=== PATIENT | female | born 1955 | race African-American/Black ===

== ENCOUNTER → 2016-06-09 | Outpatient (CLI) | payer MEDICARE ==
--- NOTE | 2016-06-09 11:20 | XR ---
EXAMINATION TYPE: XR cervical spine comp DATE OF EXAM: 06/09/2016 11:09 AM COMPARISON: NONE HISTORY: Pain TECHNIQUE: Four views are submitted. FINDINGS: The odontoid is intact. There are no compression deformities. The prevertebral soft tissue structur es are within normal limits. There is severe degenerative disc disease in C4-5, C5-6 and C6-C7. Hype rtrophic spurs are noted. Foraminal encroachment C5-6 and C6-C7. IMPRESSION: 1. Multilevel severe degenerative disc disease with foraminal encroachment.
== END | disposition home or self-care (01) ==
LOC: RADXRMAIN 10:43
PROVIDERS: ATTEND Internal Medicine
DX: M50.321 Other cervical disc degeneration at C4-C5 level (principal)
CPT/HCPCS: 72050

== ENCOUNTER → 2016-07-15 | Outpatient (CLI) | payer MEDICARE, OTHER ==
[2016-07-15 16:20] LABS: Appearance,Urine Clear (Clear); Bilirubin,Urine Negative (Negative); Glucose,Urine (UA) Negative (Negative); Ketones,Urine Negative (Negative); Leukocyte Esterase,Urine Negative (Negative); Nitrite,Urine Negative (Negative); PH, Urine 5.5 (5.0-8.0); Protein,Urine Trace (Negative); Specific Gravity,Urine 1.017 (1.001-1.035); UA Billing (MACRO vs. MICRO) CHEM; Urobilinogen,Urine <2.0 mg/dL (<2.0)
--- NOTE | 2016-07-15 17:28 | WWHP ---
DATE OF SERVICE: 07/15/2016. CHIEF COMPLAINT: The patient is here for her routine gynecologic exam and mammogram. HPI: This is a 60-year-old G0 with an LMP of 2001. She is status post CARLOS for uterine fibroids. She is without gynecologic complaints. PAST MEDICAL HISTORY: Multiple sclerosis, chronic hypertension, asthma, gastroesophageal reflux disease, migraine headaches, and depression and intermittent tachycardia and Dr. Justice is her primary care physician. MEDICATIONS: 1. ProAir 2 puffs daily. 2. Alvesco 80 mcg 2 puffs daily. 3. Topironmate 25 mg q.h.s. 4. Duloxetine HCL 30 mg daily. 5. Meloxicam 7.5 mg daily. 6. Hydrochlorothiazide 25 mg daily. 7. Atorvastatin 20 mg q.h.s. 8. Vitamin D3 2000 units daily. 9. Amlodipine besylate 10 mg daily. 10. Lansoprazole 30 mg daily. 11. Zafirlukast 20 mg b.i.d. 12. Copaxone 20 mg/mL as directed. 13. Fluticasone 50 mcg 1 to 2 sprays in each nostril daily. 14. Miralite as directed. 15. Folic acid daily. 16. Melatonin 5 mg at bedtime. 17. Darvon as directed. ALLERGIES: PENICILLIN, ASPIRIN, SULFA, AND CERTAIN DYES. PAST SURGICAL HISTORY: CARLOS and possible unilateral oophorectomy in 2001, laparoscopy in the , multiple colonoscopies and the most recent was in 2016. Varicose vein laser surgery 2016 and 2017. 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 SOCIAL HISTORY: She denies tobacco, alcohol, and drug use. She is disabled. She has been with her boyfriend since 1997 and lives next door to him. REVIEW OF SYSTEMS: She has lost about 11 pounds over the last year. She denies respiratory, cardiac, or GI problems. : She has occasional difficulty voiding where she had an urge to urinate, but only small amount will come out. She denies any dysuria. PHYSICAL EXAM: Blood pressure 116/79. Height 5 feet 6 inches. Weight 201 pounds. Temperature 98.1, pulse 58. This a well-developed, heavyset black female who is alert and oriented x3 in no acute distress. HEENT is within normal limits. NECK: Supple without mass or thyromegaly. CHEST AND LUNGS: Clear to auscultation. HEART: Regular rate and rhythm. Breasts are without mass or discharge. There is dimpled area on the right breast at approximately the 8:00 position consistent with previous open breast biopsy. This is well-healed. Axillary exam negative for adenopathy. BACK: Negative for CVA tenderness. ABDOMEN: Soft, nontender, without palpable masses. PELVIC EXAM: Normal external genitalia. Vagina appears normal with minimal atrophy. There is no evidence of prolapse. Bimanual exam reveals some mild generalized pelvic tenderness, without palpable masses. Rectovaginal exam is negative for mass or tenderness and is negative for occult blood. EXTREMITIES: Nontender. IMPRESSION: 1. A 60-year-old menopausal female, status post total abdominal hysterectomy for benign reasons. 2. Mild generalized pelvic tenderness, without palpable mass. 3. Urinary symptoms consisting of some occasional urinary urgency with small voids. PLAN: 1. Pap smears have been discontinued. 2. Self-breast examination was discussed. 3. Mammogram will be done today. 4. Clean-catch midstream UA and C&S has been obtained. 5. Pelvic ultrasound will be scheduled because of the pelvic tenderness. 6. She will return in one year. SAMUEL
--- NOTE | 2016-07-16 10:04 | MM ---
Reason for exam: screening (asymptomatic). Last mammogram was performed 1 year and 1 month ago. History: Patient is postmenopausal and is nulliparous. Family history of premenopausal breast cancer in sister at age 23, breast cancer in 3 maternal aunts, breast cancer in sister at age 47, and breast cancer in 5 maternal cousins. Excisional biopsy of the right breast, April 20, 2008. Benign right mammotome panel of the right breast, March 26, 2008. Physical Findings: A clinical breast exam by your physician is recommended on an annual basis and results should be correlated with mammographic findings. MG 3D Screening Mammo W/Cad Bilateral CC and MLO view(s) were taken. Prior study comparison: June 18, 2015, bilateral MG 3d screening mammo w/cad. June 13, 2014, bilateral MG diagnostic mammo w CAD MAXIMINO. The breast tissue is heterogeneously dense. This may lower the sensitivity of mammography. Stable benign calcifications. Stable post biopsy changes in the right breast. No significant changes when compared with prior studies. ASSESSMENT: Benign, BI-RAD 2 RECOMMENDATION: Routine screening mammogram of both breasts in 1 year.
== END | disposition home or self-care (01) ==
LOC: WWCWWP 09:21
PROVIDERS: ATTEND Obstetrics & Gynecology
DX: Z12.31 Encounter for screening mammogram for malignant neoplasm of breast (principal)
CPT/HCPCS: 81003; 87086; 77063; G0202

== ENCOUNTER → 2016-07-17 | Outpatient (CLI) | payer MEDICARE, OTHER ==
[2016-07-17 15:30] LABS: Anion Gap 9 mmol/L; Blood Urea Nitrogen 15 mg/dL (7-17); Calcium 9.4 mg/dL (8.4-10.2); Carbon Dioxide 27 mmol/L (22-30); Chloride 108 mmol/L (98-107); Glucose 82 mg/dL (74-99); Magnesium 2.3 mg/dL (1.6-2.3); Non-African American GFR(MDRD) >60 (>60 ml/min/1.73 sqM); Potassium 4.1 mmol/L (3.5-5.1); Sodium 144 mmol/L (137-145)
== END | disposition home or self-care (01) ==
LOC: LABWHC1 14:55
PROVIDERS: ATTEND Internal Medicine
DX: E87.8 Other disorders of electrolyte and fluid balance, not elsewhere classified (principal); R25.2 Cramp and spasm
CPT/HCPCS: 36415; 80048; 83735

== ENCOUNTER → 2016-07-30 | Outpatient (CLI) | payer MEDICARE, OTHER ==
--- NOTE | 2016-07-30 22:21 | US ---
EXAMINATION TYPE: US pelvic complete DATE OF EXAM: 07/30/2016 3:22 PM COMPARISON: 07/10/2015 CLINICAL HISTORY: 60-year-old female with R68.89 pelvic tenderness. Patient states she feels a sj g sensation like something is dropping from pelvic floor; prior CARLOS with one ovary surgically removed . TECHNIQUE: Multiple transabdominal sonographic images of the pelvis are obtained. FINDINGS: Uterus: Surgically absent. The vaginal cuff appears within normal limits. Right Ovary: 2.2 x 0.9 x 1.7 cm for a volume of 1.7 mL. Left Ovary: Surgically absent No evident adnexal abnormality or cul-de-sac free fluid. IMPRESSION: Status post hysterectomy. Left ovary is also surgically absent. The right ovary is small. No pelvic f ree fluid.
== END | disposition home or self-care (01) ==
LOC: RADUSWWP 14:43
PROVIDERS: ATTEND Obstetrics & Gynecology
DX: R10.819 Abdominal tenderness, unspecified site (principal); Z90.710 Acquired absence of both cervix and uterus; Z90.721 Acquired absence of ovaries, unilateral
CPT/HCPCS: 76857

== ENCOUNTER → 2016-09-28 | Outpatient (CLI) | payer MEDICARE, OTHER ==
[2016-09-28 10:12] LABS: Basophils % (A) 1 %; CH 31.1; CHCM 32.6; Eosinophils # (A) 0.1 k/uL (0-0.7); Eosinophils % (A) 2 %; HCT 46.2 % (34.0-46.0); HDW 2.49; HGB 14.9 gm/dL (11.4-16.0); Luc % (Auto) 2; Lymphocytes # (A) 2.4 k/uL (1.0-4.8); Lymphocytes % (A) 38 %; MCH 30.8 pg (25.0-35.0); MCHC 32.2 g/dL (31.0-37.0); MCV 95.6 fL (80.0-100.0); Mean Platelet Volume 6.9; Monocytes # (A) 0.3 k/uL (0-1.0); Monocytes % (A) 4 %; Neutrophils # (A) 3.3 k/uL (1.3-7.7); Neutrophils % (A) 53 %; RBC 4.83 m/uL (3.80-5.40); WBC 6.3 k/uL (3.8-10.6); WBC (Perox) 6.32
[2016-09-28 11:01] LABS: ALT 28 U/L (9-52); AST 22 U/L (14-36); Alkaline Phosphatase 115 U/L (38-126); Anion Gap 12 mmol/L; Blood Urea Nitrogen 15 mg/dL (7-17); C Reactive Protein 5.3 mg/L (<10.0); Calcium 9.9 mg/dL (8.4-10.2); Carbon Dioxide 27 mmol/L (22-30); Chloride 107 mmol/L (98-107); Cholesterol 269 mg/dL (<200); Creatine Kinase 118 U/L (30-135); Glucose 94 mg/dL (74-99); HDL Cholesterol 58 mg/dL (40-60); Magnesium 2.3 mg/dL (1.6-2.3); Non-African American GFR(MDRD) 57 (>60 ml/min/1.73 sqM); Sodium 146 mmol/L (137-145); Total Bilirubin 0.4 mg/dL (0.2-1.3); Total Protein 7.9 g/dL (6.3-8.2); Triglycerides 147 mg/dL (<150)
[2016-09-28 11:12] LABS: Erythrocyte Sedimentation Rate 12 mm/hr (0-20)
[2016-09-28 11:36] LABS: Hemoglobin A1C 5.6 % (4.2-6.1)
[2016-09-28 11:54] LABS: Vitamin B12 >1000 pg/mL (239-931)
== END | disposition home or self-care (01) ==
LOC: LABWHC1 09:25
PROVIDERS: ATTEND Psychiatry & Neurology Neurology
DX: G35 Multiple sclerosis (principal)
CPT/HCPCS: 36415; 80053; 80061; 82550; 82607; 83036; 83735; 84443; 85025; 85652; 86140

== ENCOUNTER → 2017-01-06 | Outpatient (CLI) | payer MEDICARE, OTHER ==
--- NOTE | 2017-01-06 10:33 | CT ---
EXAMINATION TYPE: CT abdomen wo con DATE OF EXAM: 01/06/2017 COMPARISON: NONE HISTORY: 61-year-old female with abdominal distention TECHNIQUE: Contiguous axial scanning of the abdomen without IV contrast. Coronal and sagittal reconst ructions performed. CT DLP: 449.0 mGycm Automated exposure control for dose reduction was used. FINDINGS: The heart is normal size without pericardial effusion. Lung bases clear without pleural effusion. Small hiatal hernia. Noncontrast appearance of the liver, gallbladder, adrenal glands, kidneys, spleen with tiny inferior splenule, and fatty atrophic pancreas show no gross abnormality. No dilated small bowel, free fluid, or free air. There is some subtle fat stranding along the central mid mesentery, axial image 41 with some small no nenlarged lymph nodes in this region. The third portion the duodenum does not appear to normally cross to the left side of the abdomen. Moderate stool burden without pericolonic inflammatory change seen. Small fatty umbilical hernia. Pelvis not imaged. Facet arthropathy lower lumbar spine. No osseous destructive process. IMPRESSION: 1. SOME SUBTLE FAT STRANDING ALONG THE CENTRAL MID MESENTERY WITH A FEW NONENLARGED MESENTERIC LYMPH NODES. FINDINGS COULD REFLECT A MILD MESENTERIC PANNICULITIS. 2. INCIDENTALLY, AN INTESTINAL MALROTATION IS SUGGESTED THE THIRD PORTION OF THE DUODENUM DOES NOT NORMALLY CROSS TO THE LEFT SIDE OF THE ABDOMEN. NO EVIDENCE FOR VOLVULUS OR OBSTRUCTION. 3. MODERATE STOOL BURDEN. 4. SMALL HIATAL HERNIA. SMALL FAT-CONTAINING UMBILICAL HERNIA.
== END | disposition home or self-care (01) ==
LOC: RADCTMAIN 09:11
PROVIDERS: ATTEND Internal Medicine
DX: K42.9 Umbilical hernia without obstruction or gangrene (principal); K44.9 Diaphragmatic hernia without obstruction or gangrene
CPT/HCPCS: 74150

== ENCOUNTER → 2017-01-08 | Outpatient (CLI) | payer MEDICARE, OTHER ==
--- NOTE | 2017-01-11 07:43 | MR ---
EXAMINATION TYPE: MR cervical spine wo con DATE OF EXAM: 01/08/2017 5:07 PM COMPARISON: NONE HISTORY: Neck pain Multiplanar MultiSpin echo imaging of the cervical spine was performed. Comparison: none C2-C3: No evidence for degenerative disc disease. No disc bulge/herniation or protrusion. No Canal stenosis. Foramina are patent bilaterally. C3-C4: No evidence for degenerative disc disease. No disc bulge/herniation or protrusion. No Canal stenosis. Foramina are patent bilaterally. C4-C5: Severe disc desiccation identified. Circumferential disc bulge greatest posteriorly effaces th e ventral thecal sac. No evidence for cord contact or central stenosis. No disc herniation seen. Gene rative change of the cervical apophyseal joints is ultimately in moderate left-sided foraminal encroa chment. C5-C6: Severe disc desiccation identified. Circumferential disc bulge greatest posteriorly effaces th e ventral thecal sac. No evidence for cord contact or central stenosis. No disc herniation seen. Gene rative change of the cervical apophyseal joints is ultimately in moderate left-sided foraminal encroa chment. C6-C7: Severe disc desiccation. Circumferential disc bulge. Effacement ventral thecal sac without gianni tral stenosis or disc herniation. Bilateral foraminal encroachment identified. C7-T1: No evidence for degenerative disc disease. No disc bulge/herniation or protrusion. No Canal stenosis. Foramina are patent bilaterally. Cervical segments are intact. There is reversal of the normal cervical lordosis which can be seen in patients with muscle spasticity. Moderate ventral spondylosis is identified. Degenerative endplate ma rrow changes seen throughout. Cervical spinal cord is of normal signal. Craniovertebral junction rel ationships are within normal limits. IMPRESSION: 1. Multilevel degenerative disc disease with disc bulging and varying degrees of foraminal encroachme nt. No evidence for disc herniation or central stenosis. 2. Reversal of the normal cervical lordosis with spondylosis and degenerative endplate marrow change.
== END | disposition home or self-care (01) ==
LOC: RADMRIMAIN 16:31
PROVIDERS: ATTEND Psychiatry & Neurology Neurology
DX: M50.221 Other cervical disc displacement at C4-C5 level (principal); M50.30 Other cervical disc degeneration, unspecified cervical region; M47.812 Spondylosis without myelopathy or radiculopathy, cervical region; M43.8X2 Other specified deforming dorsopathies, cervical region; G35 Multiple sclerosis
CPT/HCPCS: 72141

== ENCOUNTER → 2017-08-10 | Outpatient (CLI) | payer MEDICARE, OTHER ==
[2017-08-10 10:01] VITALS: BP 138/80; PULSE 69; RESP 16; TEMP 97; BMI 33.7
--- NOTE | 2017-08-10 10:51 | P.HPOB ---
History of Present Illness H&P Date: 08/10/17 Chief Complaint: The patient is here for her routine gynecologic exam and mammogram. This is a 61 year old G0 with an LMP of 2001. She is status post CARLOS for uterine fibroids. The patient is complaining of left lower quadrant abdominal and left pelvic pain during the past week. She describes it as a sharp pain like her insides are going to fall out. She noticed this while she was walking last week. The pain has been intermittent and has improved since then. Last week she rated the pain at a 10 out of 10. Today she rates it at a 1 out of 10. She is otherwise without complaints. Review of Systems She has gained about 8 pounds over the last year. She denies respiratory, cardiac, or G.I. problems. Past Medical History Past Medical History: Asthma, GERD/Reflux, Hypertension, Neurologic Disorder, Sleep Apnea/CPAP/BIPAP Additional Past Medical History / Comment(s): Multiple sclerosis (DOING WELL, NO LOSS OF FUNCTION). USES CPAP. VARICOSE VEINS. Intermittent tachycardia and migraine headaches. 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 She has no other history of STDs. History of Any Multi-Drug Resistant Organisms: None Reported Past Surgical History: Hysterectomy (CARLOS in 2001 with possible unilateral oophorectomy.), Orthopedic Surgery Additional Past Surgical History / Comment(s): VEIN STRIPPING(). Lumpectomy right breast - non cancerous. Right shoulder surgery. Multiple colonoscopies and the last one was 2015. Laparoscopy in the Past Anesthesia/Blood Transfusion Reactions: Motion Sickness Past Psychological History: Depression Smoking Status: Never smoker Past Alcohol Use History: None Reported Past Drug Use History: None Reported Additional History: She's been with her boyfriend since 1997 and lives next door to him. She is disabled. - Past Family History Father Family Medical History: Hypertension, Myocardial Infarction (MS) Mother Family Medical History: Cancer (Breast and uterine), Dementia, Hypertension Additional Family Medical History / Comment(s): breast cancer Sister(s) Family Medical History: Cancer (Breast) Additional Family Medical History / Comment(s): She has 2 sisters with breast cancer and a maternal cousin who also had breast cancer. She has a cousin who had ovarian cancer at age 38. Brother(s) Family Medical History: Coronary Artery Disease (CAD), Renal Disease Medications and Allergies Home Medications Medication Instructions Recorded Confirmed Type Albuterol Sulfate [Proair Hfa] 1 dose INHALATION BID 11/14/14 01/29/17 History Cholecalciferol [Vitamin D3] 1,000 unit PO DAILY@1200 11/14/14 01/29/17 History Cyanocobalamin [Vitamin B-12] 1,000 mg PO DAILY 11/14/14 01/29/17 History Fluticasone Nasal [place] [Flonase 1 spr NASAL BID 11/14/14 01/29/17 History Nasal [place]] Folic Acid 800 mcg PO DAILY 11/14/14 01/29/17 History Glatiramer Acetate [Copaxone] 20 mg SQ HS 11/14/14 01/29/17 History Lansoprazole [Lansoprazole] 30 mg PO HS 11/14/14 01/29/17 History Loratadine [Claritin] 10 mg PO QAM 11/14/14 01/29/17 History Dutton-3 Fatty Acids/Fish Oil [Fish 1,000 mg PO DAILY 11/14/14 01/29/17 History Oil 1,000 mg Softgel] Polyethylene Glycol 3350 [Miralax] 255 gm PO BID 11/14/14 01/29/17 History Topiramate [Topiramate] 25 mg PO HS 11/14/14 01/29/17 History Albuterol Nebulized [Ventolin 1 dose INHALATION BID PRN 02/18/16 01/29/17 History Nebulized] Atorvastatin Calcium [Lipitor] 20 mg PO HS 02/18/16 01/29/17 History Baclofen 10 mg PO HS 02/18/16 01/29/17 History Lidocaine 5% Oint [Xylocaine 5% 1 applic TOPICAL DAILY 02/18/16 01/29/17 History Oint] Ubidecarenone [Co Q-10] 100 mg PO QAM 02/18/16 01/29/17 History Zafirlukast [Accolate] 20 mg PO BID 02/18/16 01/29/17 History amLODIPine [Norvasc] 10 mg PO HS 02/18/16 01/29/17 History Allergies Allergy/AdvReac Type Severity Reaction Status Date / Time aspirin Allergy Anaphylaxis Verified 05/08/18 10:21 Iodinated Contrast- Oral and Allergy Rash/Hives Verified 08/10/17 10:21 IV Dye [Iodinated Contrast Media - IV Dye] Penicillins Allergy Rash/Hives Verified 08/10/17 10:21 Sulfa (Sulfonamide Allergy Anaphylaxis Verified 08/10/17 10:21 Antibiotics) Exam - Vital Signs Vital signs: Vital Signs Temp Pulse Resp BP 08/10/17 09:57 97 F L 69 16 138/80 Intake and Output 08/09/17 08/10/17 08/10/17 22:59 06:59 14:59 Other: Weight 94.801 kg Height 5'6", BMI 33.7. This is a well-developed well-nourished black female who is alert and oriented times 3 in no acute distress. HEENT: Within normal limits. NECK: Supple without mass or thyromegaly. CHEST AND LUNGS: Clear to auscultation. HEART: Regular rate and rhythm. BREASTS: Are without mass or discharge. AXILLARY EXAM: Negative for adenopathy. BACK: Negative for CVA tenderness. ABDOMEN: Soft, nontender, without palpable masses. PELVIC EXAM: External genitalia appears normal with mild atrophy. Vagina appears normal with mild atrophy. There is no evidence of prolapse. Bimanual examination is negative for mass or tenderness. RECTAL EXAM: Rectovaginal exam is negative for mass or tenderness and is negative for occult blood. EXTREMITIES: Nontender. IMPRESSION: 1. 61-year-old menopausal female status post CARLOS for benign reasons. 2. One-week history of intermittent left lower quadrant abdominal and left pelvic pain which has improved. There are no significant physical findings at this time. 3. Strong family history of breast and ovarian cancer. PLAN: 1. Pap smears have been discontinued. 2. Self breast awareness was discussed. 3. Screening mammogram will be done today. 4. We have had a long discussion regarding possible genetic cancer testing. I do feel she is a candidate for this type of testing. I have stressed the importance of good counseling prior to and after testing. She will be referred to a genetic cancer center at a tertiary center. 5. She will be scheduled for pelvic ultrasound. 6. She will return in one year and PRN.
--- NOTE | 2017-08-11 13:42 | MM ---
Reason for exam: screening (asymptomatic). Last mammogram was performed 1 year and 1 month ago. History: Patient is postmenopausal and is nulliparous. Family history of premenopausal breast cancer in sister at age 23, breast cancer in 3 maternal aunts, breast cancer in sister at age 47, and breast cancer in 5 maternal cousins. Excisional biopsy of the right breast, April 20, 2008. Benign right mammotome panel of the right breast, March 26, 2008. Physical Findings: A clinical breast exam by your physician is recommended on an annual basis and results should be correlated with mammographic findings. MG 3D Screening Mammo W/Cad Bilateral CC and MLO view(s) were taken. Prior study comparison: July 15, 2016, bilateral MG 3d screening mammo w/cad. June 18, 2015, bilateral MG 3d screening mammo w/cad. The breast tissue is heterogeneously dense. This may lower the sensitivity of mammography. Finding: There is stable architectural distortion in the central position of the right breast at clip. Previous mammotome biopsy in the right breast. There is no discrete abnormality. ASSESSMENT: Benign, BI-RAD 2 RECOMMENDATION: Routine screening mammogram of both breasts in 1 year.
== END | disposition home or self-care (01) ==
LOC: WWCWWP 08:48
PROVIDERS: ATTEND Obstetrics & Gynecology
DX: Z12.31 Encounter for screening mammogram for malignant neoplasm of breast (principal)
CPT/HCPCS: 77063; 77067

== ENCOUNTER → 2017-08-24 | Outpatient (CLI) | payer MEDICARE, OTHER | END | disposition home or self-care (01) | LOC: LABWHC1 11:14 | PROVIDERS: ATTEND Internal Medicine | DX: I82.409 Acute embolism and thrombosis of unspecified deep veins of unspecified lower extremity (principal); M79.606 Pain in leg, unspecified | CPT/HCPCS: 36415; 85379; 85652 ==

== ENCOUNTER → 2017-09-01 | Outpatient (CLI) | payer MEDICARE, OTHER ==
--- NOTE | 2017-09-01 15:34 | US ---
EXAMINATION TYPE: US transvaginal DATE OF EXAM: 09/01/2017 COMPARISON: US CLINICAL HISTORY: R10.32 LLQ Pain,r10.2 Pelvic Pain; bilateral pelvic pain radiating to groin and leg s; hysterectomy and left oophorectomy 2000 TECHNIQUE: Transvaginal as patient's bladder not full for TA US and chose to have TV US for right ov calin assessment . Date of LMP: 2000 EXAM MEASUREMENTS: Uterus: surgically removed Endometrial Stripe: surgically removed Right Ovary: 1.4 x 1.7 x 0.9 cm Left Ovary: surgically removed 1. Right Ovary: small follicles with small calcifications in periphery; color flow seen in ovary 2. Bilateral Adnexa: wnl 3. Posterior cul-de-sac: wnl IMPRESSION: 1. Pelvic ultrasound appears within normal limits. 2. Patient is postsurgical hysterectomy and left oophrectomy.
== END | disposition home or self-care (01) ==
LOC: RADUSWWP 13:11
PROVIDERS: ATTEND Obstetrics & Gynecology
DX: R10.2 Pelvic and perineal pain (principal); R10.32 Left lower quadrant pain; Z90.710 Acquired absence of both cervix and uterus
CPT/HCPCS: 76830

== ENCOUNTER → 2017-11-30 | Outpatient (CLI) | payer MEDICARE ==
--- NOTE | 2017-11-30 23:20 | MR ---
EXAMINATION TYPE: MR brain wo/w con DATE OF EXAM: 11/30/2017 COMPARISON: MRI 01/30/2016 HISTORY: 62-year-old female MS TECHNIQUE: Multiplanar, multisequence images of the brain and brainstem is performed without and with IV contras t, utilizing 9 mL intravenous Gadavist gadolinium contrast is administered intravenously. Demyelinat ing disease protocol with additional Sagittal Flair sequence performed. FINDINGS: T2 Lesions Present : Yes Approximate Number of Lesions: Numerous punctate foci present, approximately 20 and the left cerebral hemisphere and 20 - 25 in the right cerebral hemisphere Locations Identified : Subcortical, periventricular, and deep white matter Size of Reference Lesion(s): 1. 4 mm subcortical anterior right frontal lobe which is 3 mm, previously. 2. Numerous additional foci of punctate. Enhancing Lesion(s) Present: None T1 Hypointense Lesion(s) Present: Difficult to assess given punctate size of these lesions. Change from Prior: A few lesions appear to be new, reference lesion 1 is minimally increased in size. Diffusion weighted images demonstrate no evidence of a recent infarct or other diffusion abnormality. There is no worrisome extra-axial fluid collection. The ventricular system and cisternal spaces ar e normal in size and appearance. The brain volume is age appropriate. Midline structures demonstrate normal morphology. The craniocervical junction appears within normal limits. Post contrast images demonstrate no abnormal enhancement. The dural venous sinuses appear patent. Trace mucosal thickening ethmoid air cells. Globes are intact. IMPRESSION: Numerous punctate foci of bright white matter change in both cerebral hemispheres with moderate scatt ered burden. Reference lesion in the anterior right frontal lobe is larger by a millimeter. A few pun ctate foci are new from 2016. No enhancing lesion seen. Findings compatible with patient's history of MS.
== END | disposition home or self-care (01) ==
LOC: RADMRIMAIN 11:18
PROVIDERS: ATTEND Psychiatry & Neurology Neurology
DX: R90.89 Other abnormal findings on diagnostic imaging of central nervous system (principal); G35 Multiple sclerosis
CPT/HCPCS: 70553; A9581

== ENCOUNTER → 2018-01-05 | Outpatient (CLI) | payer MEDICARE ==
--- NOTE | 2018-01-05 12:01 | XR ---
Left femur and left knee HISTORY: Pain 2 views of the left femur on 4 images, 3 views the left knee submitted. Bone mineralization, joint spaces, alignment are maintained. No fracture or dislocation. No evident j oint effusion. IMPRESSION: Normal left femur and knee.
== END ==
LOC: RADXRMAIN 11:13
PROVIDERS: ATTEND Internal Medicine
DX: R52 Pain, unspecified (principal)

== ENCOUNTER → 2018-01-11 | Outpatient (CLI) | payer MEDICARE ==
--- NOTE | 2018-01-12 09:13 | XR ---
EXAM TYPE: LUMBAR SPINE X RAY SERIES COMPARISON: NONE HISTORY: Pain TECHNIQUE: 4 views are submitted. FINDINGS: Alignment is anatomic. The pedicles are intact. The transverse processes are intact. There is no s pondylolysis or spondylolisthesis. There is moderate degenerative disc disease L2-3 and L3-4 with mi ld changes at remaining levels. Facet arthropathy L5-S1. Diffuse osteopenia. IMPRESSION: 1. Multilevel degenerative disc disease.
--- NOTE | 2018-01-12 09:31 | XR ---
EXAMINATION TYPE: XR Hip Complete LT DATE OF EXAM: 01/11/2018 COMPARISON: NONE HISTORY: Pain TECHNIQUE: 2 views submitted FINDINGS: There is no evidence of erosive change or acute fracture. Mild concentric narrowing of the joint spac e. Hypertrophic change of the acetabulum. Spurring along the greater trochanter. Osteitis pubis muro nsans noted. IMPRESSION: 1. Mild arthropathy correlate for femoral acetabular impingement..
== END | disposition home or self-care (01) ==
LOC: RADXRMAIN 16:38
PROVIDERS: ATTEND Internal Medicine
DX: M51.37 Other intervertebral disc degeneration, lumbosacral region (principal); M16.12 Unilateral primary osteoarthritis, left hip
CPT/HCPCS: 72110; 73502

== ENCOUNTER → 2018-01-19 | Outpatient (CLI) | payer MEDICARE, OTHER ==
[2018-01-19 13:27] LABS: Basophils % (A) 1 %; Eosinophils # (A) 0.2 k/uL (0-0.7); Eosinophils % (A) 3 %; HCT 45.1 % (34.0-46.0); HGB 14.4 gm/dL (11.4-16.0); Lymphocytes # (A) 2.4 k/uL (1.0-4.8); Lymphocytes % (A) 40 %; MCH 30.7 pg (25.0-35.0); MCV 95.8 fL (80.0-100.0); Mean Platelet Volume 6.8; Monocytes # (A) 0.3 k/uL (0-1.0); Monocytes % (A) 4 %; Neutrophils % (A) 51 %; Platelet Count 204 k/uL (150-450); RBC 4.71 m/uL (3.80-5.40); WBC 5.9 k/uL (3.8-10.6)
[2018-01-19 13:28] LABS: ALT 27 U/L (9-52); AST 23 U/L (14-36); Albumin 4.1 g/dL (3.5-5.0); Alkaline Phosphatase 93 U/L (38-126); Anion Gap 8 mmol/L; Blood Urea Nitrogen 13 mg/dL (7-17); C Reactive Protein <5.0 mg/L (<10.0); Calcium 9.6 mg/dL (8.4-10.2); Carbon Dioxide 28 mmol/L (22-30); Chloride 105 mmol/L (98-107); Cholesterol 188 mg/dL (<200); Creatine Kinase 117 U/L (30-135); Glucose 92 mg/dL (74-99); HDL Cholesterol 50 mg/dL (40-60); LDL Cholesterol,Calculated 118 mg/dL (0-99); Magnesium 2.2 mg/dL (1.6-2.3); Sodium 141 mmol/L (137-145); Total Bilirubin 0.6 mg/dL (0.2-1.3); Total Protein 7.4 g/dL (6.3-8.2); Triglycerides 98 mg/dL (<150)
[2018-01-19 14:52] LABS: Erythrocyte Sedimentation Rate 8 mm/hr (0-20)
== END | disposition home or self-care (01) ==
LOC: LABWHC1 11:45
PROVIDERS: ATTEND Internal Medicine
DX: E78.5 Hyperlipidemia, unspecified (principal); E55.9 Vitamin D deficiency, unspecified; D64.9 Anemia, unspecified; E87.8 Other disorders of electrolyte and fluid balance, not elsewhere classified; I10 Essential (primary) hypertension; E03.9 Hypothyroidism, unspecified; E66.9 Obesity, unspecified; G35 Multiple sclerosis
CPT/HCPCS: 36415; 80053; 80061; 82272; 82306; 82550; 83735; 84443; 85025; 85652; 86140

== ENCOUNTER → 2018-02-03 | Outpatient (CLI) | payer MEDICARE, OTHER ==
--- NOTE | 2018-02-03 23:22 | MR ---
EXAMINATION TYPE: MR lumbar spine wo con DATE OF EXAM: 02/03/2018 COMPARISON: 06/30/2011 HISTORY: Lt thigh & hip pain x 2 mos, hx trauma TECHNIQUE: Multiplanar, multisequence images of the lumbar spine were acquired. Lumbar spine vertebra appear intact. There is normal alignment. There is slight narrowing of the disc spaces from L1 to L5 with decreased signal in the disks. There is small posterior disc bulging at L2 -3 L3-4 L4-5 without impingement on the spinal canal. There is developmentally adequate spinal canal. Sacroiliac joints appear intact. There is no lumbar paraspinal mass. I see no bony destructive proce ss. The neural foramina appear widely patent. IMPRESSION: Mild spondylotic changes. No spinal stenosis. No fracture. Disc bulging is increased slightly compare d to old exam. There is some progression of the degenerative disc changes.
== END ==
LOC: RADMRIMAIN 20:52
PROVIDERS: ATTEND Psychiatry & Neurology Neurology
DX: M51.26 Other intervertebral disc displacement, lumbar region (principal); M51.36 Other intervertebral disc degeneration, lumbar region; M47.816 Spondylosis without myelopathy or radiculopathy, lumbar region
CPT/HCPCS: 72148

== ENCOUNTER → 2018-07-05 | Outpatient (CLI) | payer MEDICARE, OTHER ==
[2018-07-05 14:35] LABS: Basophils % (A) 1 %; Eosinophils # (A) 0.2 k/uL (0-0.7); Eosinophils % (A) 3 %; HCT 47.4 % (34.0-46.0); HGB 14.9 gm/dL (11.4-16.0); Lymphocytes # (A) 2.5 k/uL (1.0-4.8); Lymphocytes % (A) 39 %; MCH 29.5 pg (25.0-35.0); MCHC 31.3 g/dL (31.0-37.0); MCV 94.1 fL (80.0-100.0); Mean Platelet Volume 7.1; Monocytes # (A) 0.3 k/uL (0-1.0); Monocytes % (A) 4 %; Neutrophils # (A) 3.4 k/uL (1.3-7.7); Neutrophils % (A) 53 %; Platelet Count 202 k/uL (150-450); RBC 5.04 m/uL (3.80-5.40); RDW 12.9 % (11.5-15.5); WBC 6.4 k/uL (3.8-10.6)
[2018-07-05 17:03] LABS: Erythrocyte Sedimentation Rate 9 mm/hr (0-20)
[2018-07-05 19:29] LABS: Albumin 4.3 g/dL (3.80-4.90); Albumin/Globulin Ratio 1.79 (1.60-3.17); Anion Gap 9.4 mmol/L (4.00-12.00); Calcium 9.5 mg/dL (8.7-10.3); Carbon Dioxide 24.6 mmol/L (21.6-31.8); Globulin 2.4 g/dL (1.6-3.3); Potassium 3.7 mmol/L (3.5-5.5); Total Bilirubin 0.6 mg/dL (0.3-1.2); Total Protein 6.7 g/dL (6.2-8.2)
== END | disposition home or self-care (01) ==
LOC: LABWHC1 12:31
PROVIDERS: ATTEND Internal Medicine
DX: R10.0 Acute abdomen (principal)
CPT/HCPCS: 36415; 80053; 85025; 85652

== ENCOUNTER → 2018-07-07 | Outpatient (CLI) | payer MEDICARE, OTHER ==
--- NOTE | 2018-07-08 09:03 | CT ---
EXAMINATION TYPE: CT abdomen w con DATE OF EXAM: 07/07/2018 COMPARISON: 01/06/2017 INDICATION: stomach pain DLP: 998.80 mGycm, Automated exposure control for dose reduction was used. CONTRAST: 100 mL of Isovue 300. Study performed with Oral Contrast TECHNIQUE: Axial images were obtained from above the diaphragm to the pubic rami in the axial plane a t 5 mm thick sections. Reconstructed images are reviewed on the computer in the coronal plane. FINDINGS: Limited CT sections are obtained the lung bases. The lung bases are clear. CT ABDOMEN: Liver: Normal Spleen: Normal Pancreas: Moderate fatty infiltration. Adrenal glands: The adrenal glands are normal. Gallbladder: Normal Kidneys: No masses are evident. No hydronephrosis is present. There is a cortical renal cysts prese nt on the anterior right mid kidney measuring 1.0 cm and 25 Hounsfield units. Delayed images were ob tained through the kidneys, which remain unremarkable. Aorta: Normal Inferior vena cava: Normal. Loops of bowel distended with oral contrast appear unremarkable. There are loops of bowel which are i ncompletely distended or lack oral contrast limiting their evaluation. There is a small anterior abdo mayur wall hernia containing contrast-filled loop of small bowel. This is nonobstructed. The opening measures 1.6 cm. IMPRESSIONS: 1. Anterior abdominal wall hernia containing a Loop of nonobstructed small bowel. This was present p reviously
== END ==
LOC: RADCTMAIN 15:07
PROVIDERS: ATTEND Internal Medicine
DX: K43.9 Ventral hernia without obstruction or gangrene (principal); Z88.0 Allergy status to penicillin; Z88.2 Allergy status to sulfonamides; Z88.6 Allergy status to analgesic agent; Z88.8 Allergy status to other drugs, medicaments and biological substances
CPT/HCPCS: 74160; Q9967

== ENCOUNTER → 2018-08-09 | Outpatient (CLI) | payer MEDICARE, OTHER ==
--- NOTE | 2018-08-09 10:16 | MR ---
EXAMINATION TYPE: MR brain wo/w con DATE OF EXAM: 08/09/2018 COMPARISON: 11/30/2017 HISTORY: Relapsing MS TECHNIQUE: Multiplanar, multisequence images of the brain and brainstem is performed without and with IV contras t, utilizing 9 mL intravenous Gadavist . FINDINGS: Diffusion weighted images demonstrate no evidence of a recent infarct or other diffusion ab normality. The ventricular system and cisternal spaces are normal in size and appearance. The brain volume is age appropriate. Midline structures demonstrate normal morphology. The craniocervical junction appears within normal limits. Post contrast images demonstrate no abnormal enhancement. The dural venous sinuses appear pa tent. There are changes of chronic sinusitis with nasal septal deviation. WHITE MATTER: There are approximately 25-30 white matter lesions retrospectively stable in size shape and position relative to the prior exam. There are subcortical, periventricular and deep white matter lesions the largest which measures appro ximately 5 mm. No enhancing lesions. No callosal lesions. IMPRESSION: 1. Diffuse nonspecific white matter changes are stable in size, morphology and number relative to the prior exam. No enhancing lesions.
== END ==
LOC: RADMRIMAIN 08:56
PROVIDERS: ATTEND Psychiatry & Neurology Neurology
DX: G35 Multiple sclerosis (principal)
CPT/HCPCS: 70553; A9585

== ENCOUNTER → 2018-09-15 | Outpatient (CLI) | payer MEDICARE, OTHER ==
--- NOTE | 2018-09-15 16:56 | XR ---
Cervical spine HISTORY: Neck pain 6 views of the cervical spine correlated prior exam 06/09/2016 There is multilevel facet arthropathy change. Probable vascular calcification along the carotid arter y distribution. Lateral extension of endplates causes foraminal encroachment at C5-6 and C6-7 on the right and C4-5, C5-6 and C6-7 on the left. Cervical vertebral bodies show preserved height, alignment , and bone mineralization. Loss of disc height present at intervertebral levels. Loss of normal lordo sis could be due to muscle spasm. IMPRESSION: Degenerative disc disease, facet arthropathy, multilevel foraminal encroachment.
== END | disposition home or self-care (01) ==
LOC: RADXRMAIN 14:53
PROVIDERS: ATTEND Internal Medicine
DX: M50.30 Other cervical disc degeneration, unspecified cervical region (principal); M46.92 Unspecified inflammatory spondylopathy, cervical region
CPT/HCPCS: 72050

== ENCOUNTER → 2018-11-15 | Outpatient (CLI) | payer MEDICARE, OTHER ==
--- NOTE | 2018-11-15 13:47 | MR ---
EXAMINATION TYPE: MR cervical spine wo con DATE OF EXAM: 11/15/2018 COMPARISON: Prior MRI 01/08/2017 HISTORY: cervicalgia TECHNIQUE: Multiplanar, multisequence images of the cervical spine were acquired. C2-C3: Essentially stable, no central stenosis or disc herniation. Foramina are patent.. C3-C4: No disc herniation. Foramina are patent. No central stenosis. C4-C5: Broad-based posterior disc bulge causes mild anterior mass effect on the thecal sac. Uncoverte bral joint hypertrophy, facet arthropathy results in left-sided foraminal encroachment. Findings are similar to prior exam. C5-C6: Bilateral foraminal encroachment is present similar to prior exam. No significant central sten osis, broad-based posterior disc bulge causes mild anterior mass effect on the thecal sac.. C6-C7: Similar to prior exam. No significant central stenosis. Bilateral foraminal encroachment is pr esent. Circumferential posterior disc bulge causes minimal anterior mass effect on the thecal sac. C7-T1: No evidence for degenerative disc disease. No disc bulge/herniation or protrusion. No Canal stenosis. Foramina are patent bilaterally. Cervical segments are intact. There is stable alignment. Cervical spinal cord is of normal signal. Craniovertebral junction relationships are within normal limits. Loss of disc height signal at inte rvertebral levels is again noted, there is endplate discogenic marrow signal change, irregularity, mu ltilevel spondylosis similar to prior exam. IMPRESSION: Multilevel degenerative disc disease, foraminal encroachment as described is stable compared to prior exam.
== END | disposition home or self-care (01) ==
LOC: RADMRIMAIN 08:56
PROVIDERS: ATTEND Internal Medicine
DX: M50.30 Other cervical disc degeneration, unspecified cervical region (principal)
CPT/HCPCS: 72141

== ENCOUNTER → 2019-02-20 | Outpatient (CLI) | payer MEDICARE, OTHER ==
[2019-02-20 13:06] LABS: Basophils # (A) 0.1 k/uL (0-0.2); Basophils % (A) 1 %; Eosinophils # (A) 0.1 k/uL (0-0.7); Eosinophils % (A) 2 %; HCT 44.5 % (34.0-46.0); HGB 14.5 gm/dL (11.4-16.0); Lymphocytes # (A) 2.4 k/uL (1.0-4.8); Lymphocytes % (A) 37 %; MCH 30.5 pg (25.0-35.0); MCHC 32.5 g/dL (31.0-37.0); MCV 93.8 fL (80.0-100.0); Mean Platelet Volume 6.8; Monocytes # (A) 0.2 k/uL (0-1.0); Monocytes % (A) 4 %; Neutrophils # (A) 3.6 k/uL (1.3-7.7); Neutrophils % (A) 55 %; Platelet Count 183 k/uL (150-450); RBC 4.74 m/uL (3.80-5.40); RDW 13.2 % (11.5-15.5); WBC 6.5 k/uL (3.8-10.6)
[2019-02-20 16:37] LABS: Erythrocyte Sedimentation Rate 11 mm/hr (0-20)
[2019-02-20 19:10] LABS: African American GFR (CKD) 92.2 (60.0-200.0); Albumin 4.4 g/dL (3.80-4.90); Albumin/Globulin Ratio 1.83 (1.60-3.17); Anion Gap 11.5 mmol/L (4.00-12.00); BUN/Creat Ratio 13.75 Ratio (12.00-20.00); C Reactive Protein 0.6 mg/dL (0.0-0.8); Calcium 9.3 mg/dL (8.7-10.3); Carbon Dioxide 21.5 mmol/L (21.6-31.8); Chol/HDL Ratio 3.57; Globulin 2.4 g/dL (1.6-3.3); LDL Cholesterol,Calculated 105.8 mg/dL (0.0-131.0); Magnesium 2.1 mg/dL (1.5-2.4); Phosphorus 3.3 mg/dL (2.4-5.1); Potassium 4.8 mmol/L (3.5-5.5); Total Bilirubin 0.4 mg/dL (0.3-1.2); Total Protein 6.8 g/dL (6.2-8.2); VLDL Calculation 20.2 mg/dL (5.00-40.00)
[2019-02-20 19:55] LABS: Hemoglobin A1C 5.8 % (4.0-6.0)
== END | disposition home or self-care (01) ==
LOC: LABWHC1 10:58
PROVIDERS: ATTEND Internal Medicine
DX: I10 Essential (primary) hypertension (principal); E78.5 Hyperlipidemia, unspecified; E11.65 Type 2 diabetes mellitus with hyperglycemia; E03.9 Hypothyroidism, unspecified
CPT/HCPCS: 36415; 80053; 80061; 82306; 82550; 83036; 83735; 84100; 84443; 85025; 85652; 86140

== ENCOUNTER → 2019-10-18 | Outpatient (CLI) | payer MEDICARE, OTHER ==
[2019-10-18 13:45] VITALS: RESP 16
[2019-10-18 13:51] VITALS: BP 130/88; PULSE 57
--- NOTE | 2019-10-18 14:35 | P.PAINCN ---
History of Present Illness - Reason for Consult Consult date: 10/18/19 - History of Present Illness This is initial consultation visit for this 64 years old female with a chronic history of severe neck pain and headache, she reported that her symptoms started more than a year ago and increased over the last few months, the neck pain is constant and increases with any neck movement, and also aggravated with headache, the headaches start from the base of the skull radiated to the top, she denies any motor or sensory deficits, she denies any change in the bowel movement or urination she denies any fever or night sweats, she is able to move her upper extremity without any restriction. Past Medical History Past Medical History: Asthma, GERD/Reflux, Hypertension, Neurologic Disorder, Sleep Apnea/CPAP/BIPAP Additional Past Medical History / Comment(s): Multiple sclerosis (NO LOSS OF FUNCTION) VARICOSE VEINS. Intermittent tachycardia, migraine headaches. history of gonorrhea in the . History of Any Multi-Drug Resistant Organisms: None Reported Past Surgical History: Breast Surgery, Hysterectomy, Orthopedic Surgery Additional Past Surgical History / Comment(s): VEIN STRIPPING. Lumpectomy right breast Right shoulder surgery. Multiple colonoscopies, Laparoscopy in the Past Anesthesia/Blood Transfusion Reactions: Motion Sickness Past Psychological History: Depression Smoking Status: Never smoker Past Alcohol Use History: None Reported Past Drug Use History: None Reported - Past Family History Father Family Medical History: Hypertension, Myocardial Infarction (MS) Mother Family Medical History: Cancer Additional Family Medical History / Comment(s): breast cancer Sister(s) Family Medical History: Cancer Additional Family Medical History / Comment(s): . Brother(s) Family Medical History: Coronary Artery Disease (CAD), Renal Disease Medications and Allergies Home Medications Medication Instructions Recorded Confirmed Type Albuterol Sulfate [Proair Hfa] 1 dose INHALATION BID PRN 11/14/14 10/18/19 History Cholecalciferol [Vitamin D3] 1,000 unit PO DAILY 11/14/14 10/18/19 History Cyanocobalamin [Vitamin B-12] 1,000 mg PO DAILY 11/14/14 10/18/19 History Fluticasone Nasal [place] [Flonase 1 spr NASAL BID 11/14/14 10/18/19 History Nasal [place]] Folic Acid 800 mcg PO DAILY 11/14/14 10/18/19 History Glatiramer Acetate [Copaxone] 20 mg SQ HS 11/14/14 10/18/19 History Loratadine [Claritin] 10 mg PO QAM 11/14/14 10/18/19 History Justice-3 Fatty Acids/Fish Oil [Fish 1,000 mg PO DAILY 11/14/14 10/18/19 History Oil 1,000 mg Softgel] Topiramate 25 mg PO HS 11/14/14 10/18/19 History Albuterol Nebulized [Ventolin 1 dose INHALATION BID PRN 02/18/16 10/18/19 History Nebulized] Atorvastatin Calcium [Lipitor] 20 mg PO HS 02/18/16 10/18/19 History Baclofen 20 mg PO HS 02/18/16 10/18/19 History Lidocaine 5% Oint [Xylocaine 5% 1 applic TOPICAL DAILY 02/18/16 10/18/19 History Oint] Zafirlukast [Accolate] 20 mg PO BID 02/18/16 10/18/19 History amLODIPine [Norvasc] 10 mg PO HS 02/18/16 10/18/19 History Ascorbic Acid [Vitamin C] 500 mg PO DAILY 10/17/19 10/18/19 History Carboxymethylcellulose Sodium 15 ml OP DAILY 10/17/19 10/18/19 History [Refresh Tears] Ibgard 1 cap PO DAILY PRN 10/17/19 10/18/19 History Magnesium 500 mg PO DAILY 10/17/19 10/18/19 History Omeprazole 20 mg PO HS 10/17/19 10/18/19 History Omeprazole [PriLOSEC] 40 mg PO DAILY 10/17/19 10/18/19 History Vitamin E 100 unit PO DAILY 10/17/19 10/18/19 History Allergies Allergy/AdvReac Type Severity Reaction Status Date / Time aspirin Allergy Anaphylaxis Verified 10/17/19 14:07 Iodinated Contrast Media Allergy Rash/Hives Verified 10/17/19 14:07 [Iodinated Contrast Media - IV Dye] Penicillins Allergy Rash/Hives Verified 10/17/19 14:07 Sulfa (Sulfonamide Allergy Anaphylaxis Verified 10/17/19 14:07 Antibiotics) Physical Exam Vitals: Vital Signs Pulse Resp BP Pulse Ox 10/18/19 13:44 57 L 16 130/88 100 Physical Examinations : -Constitutiona : Cooperative , not in acute distress . -HEENT : nech : supple , no Lymphadenopathy , normal thyroid size . : eyes : no ptosis , no icterus, no photophobia . : ENT : normal of hearing , normal oropharynx , no Thrush . - Respiratory : Chest clear to auscultations Bilaterally , no wheezing , no Rhonchi . - Cardiovascula : regular rate and rhythem , S1 , S2 , no S3 , no S4. - Gastrointestina : abdomen soft no tenderness , bowel sounds , no organomegally . - Genitourinary : Defferred . - neurologic : Cranial nerve II to XII intact , no focal neurological deffecit . -psychatric : alert , oriented X 3 , appropriate affect , intact judgment and insight . -Lymphatic : no Lymphadenopathy . - musculoskeltal : Cervical Spine motor stregnth in the deltoid and biceps, normal right side , normal Left side motor stregnth biceps and the wrist extensors normal right side ,normal left side . motor stregnth in the triceps muscle . normal Right side , normal Left side deep tendon reflexes normal at the biceps , normal at Brachioradialis , normal at triceps. cervical facet loading test= Positive Bilaterally Spurling test= negative bilaterally. Neck distraction test= negative bilaterally. Stacey sign= negative bilaerally Severe tenderness over the occipital nerve bilaterally Lumber spine moter stegnth lower extremities ,thigh and legs 5/5 Right side , 5/5 Left side Results Comments: MRI of the cervical spine done in 2019 multilevel cervical degenerative disc disease at C4 5 and C5 6 and C6 7 Assessment and Plan Plan: Assessment and plan=1-occipital neuralgia 2-cervicogenic headache. 3-cervical spondylosis. 4-cervical degenerative disc disease. Patient will be good candidate to have diagnostic medial branch block cervical area at C2, C3, C4, C5 x2 and possible RFA If patient continued to have headache after we do the RFA, and we will target the occipital nerve by doing occipital nerve block. Treatment plan discussed with the patient and with Dr. Mendez Time with Patient: Greater than 30 PQRS Measure Charge Sheet Measure #130: Documentation of Current Meds in Medical Chart: Patient's me dications documented in chart Measure #226: Tobacco Use: Screen & Cessation Intervention: Pt not a tobacco user Measure #111: Pneumonia Vaccination: Pneumococcal vaccine NOT administered or previously given Measure #47: Advance Care Plan: Advance care planning discussed & documented, pt chose/unable to give Measure #412: Opioid Treatment Agreement: No documentation of signed opioid treatment agreement Measure #408: Opioid Therapy Follow-up Evaluation: Patient had NO f/u eval minimum every 3 months during opioid therapy Measure #317: Preventitive Care & Scrn High Bld Press & F/U: Normal blood pressure, f/u not required Measure #128: Body Mass Index (BMI) Screening & Follow-up: BMI documented ABOVE normal parameters - f/u documented Measure #131: Pain Assessment & Follow-up: Pain positive & plan documented, Follow-up scheduled Measure #431: Unhealthy Alcohol Use Preventative Care & Scrn: Patient not identified as an unhealthy alcohol user PQRS Narrative: Smoking Status Never smoker Blood Pressure 130/88 Pain Intensity [Neck] 9 Scale Used Numeric (1 - 10) Hx Alcohol Use (MH) No Home Medications: Ambulatory Orders Albuterol Sulfate [Proair Hfa] 1 dose INHALATION BID PRN 11/14/14 Cholecalciferol [Vitamin D3] 1,000 unit PO DAILY 11/14/14 Cyanocobalamin [Vitamin B-12] 1,000 mg PO DAILY 11/14/14 Fluticasone Nasal [place] [Flonase Nasal [place]] 1 spr NASAL BID 11/14/14 Folic Acid 800 mcg PO DAILY 11/14/14 Glatiramer Acetate [Copaxone] 20 mg SQ HS 11/14/14 Loratadine [Claritin] 10 mg PO QAM 11/14/14 Justice-3 Fatty Acids/Fish Oil [Fish Oil 1,000 mg Softgel] 1,000 mg PO DAILY 11/14/14 Topiramate 25 mg PO HS 11/14/14 Albuterol Nebulized [Ventolin Nebulized] 1 dose INHALATION BID PRN 02/18/16 Atorvastatin Calcium [Lipitor] 20 mg PO HS 02/18/16 Baclofen 20 mg PO HS 02/18/16 Lidocaine 5% Oint [Xylocaine 5% Oint] 1 applic TOPICAL DAILY 02/18/16 Zafirlukast [Accolate] 20 mg PO BID 02/18/16 amLODIPine [Norvasc] 10 mg PO HS 02/18/16 Ascorbic Acid [Vitamin C] 500 mg PO DAILY 10/17/19 Carboxymethylcellulose Sodium [Refresh Tears] 15 ml OP DAILY 10/17/19 Ibgard 1 cap PO DAILY PRN 10/17/19 Magnesium 500 mg PO DAILY 10/17/19 Omeprazole 20 mg PO HS 10/17/19 Omeprazole [PriLOSEC] 40 mg PO DAILY 10/17/19 Vitamin E 100 unit PO DAILY 10/17/19
== END | disposition home or self-care (01) ==
LOC: PNWHC3 13:02
PROVIDERS: ATTEND Specialist
DX: M47.812 Spondylosis without myelopathy or radiculopathy, cervical region (principal); R51 Headache; M54.81 Occipital neuralgia; M50.30 Other cervical disc degeneration, unspecified cervical region; Z79.891 Long term (current) use of opiate analgesic; Z79.899 Other long term (current) drug therapy
CPT/HCPCS: 99201

== ENCOUNTER → 2019-11-20 | Outpatient (CLI) | payer MEDICARE, OTHER ==
[2019-11-20 11:10] LABS: Basophils % (A) 1 %; Eosinophils # (A) 0.1 k/uL (0-0.7); Eosinophils % (A) 2 %; HCT 44.7 % (34.0-46.0); Lymphocytes # (A) 2.3 k/uL (1.0-4.8); Lymphocytes % (A) 32 %; MCH 29.5 pg (25.0-35.0); MCHC 31.5 g/dL (31.0-37.0); MCV 93.7 fL (80.0-100.0); Mean Platelet Volume 7.3; Monocytes # (A) 0.3 k/uL (0-1.0); Monocytes % (A) 4 %; Neutrophils # (A) 4.3 k/uL (1.3-7.7); Neutrophils % (A) 60 %; Platelet Count 216 k/uL (150-450); RBC 4.77 m/uL (3.80-5.40); RDW 13.1 % (11.5-15.5); WBC 7.1 k/uL (3.8-10.6)
[2019-11-20 15:51] LABS: African American GFR (CKD) 62.3 (60.0-200.0); Albumin 4.1 g/dL (3.80-4.90); Albumin/Globulin Ratio 1.58 (1.60-3.17); Anion Gap 8.9 mmol/L (4.00-12.00); BUN/Creat Ratio 15.45 Ratio (12.00-20.00); Calcium 9.5 mg/dL (8.7-10.3); Carbon Dioxide 25.1 mmol/L (21.6-31.8); Globulin 2.6 g/dL (1.6-3.3); Non-African American GFR(CKD) 53.8 (60.0-200.0); Potassium 3.5 mmol/L (3.5-5.5); Total Bilirubin 0.5 mg/dL (0.2-1.2); Total Protein 6.7 g/dL (6.2-8.2)
[2019-11-20 17:24] LABS: Erythrocyte Sedimentation Rate 19 mm/Hr (0-30)
--- NOTE | 2019-11-20 20:25 | XR ---
EXAMINATION TYPE: XR chest 2V DATE OF EXAM: 11/20/2019 CLINICAL HISTORY: Cough TECHNIQUE: Frontal and lateral views of the chest are obtained. COMPARISON: None FINDINGS: The cardiomediastinal silhouette is within normal limits for size. Pulmonary vasculature i s normal. There is no focal air space opacity, pleural effusion, or pneumothorax seen. The osseous st ructures are intact. IMPRESSION: No acute cardiopulmonary process.
== END | disposition home or self-care (01) ==
LOC: LABWHC1 09:58
PROVIDERS: ATTEND Internal Medicine
DX: J12.9 Viral pneumonia, unspecified (principal); R05 Cough; R10.819 Abdominal tenderness, unspecified site
CPT/HCPCS: 36415; 71046; 80053; 85025; 85652

== ENCOUNTER 2019-11-30 06:49 | Day surgery (SDC) | payer MEDICARE, OTHER ==
[2019-11-29 11:00] VITALS: BMI 33.9
[~2019-11-30 06:49] MED LIST: LACTATED RINGERS 1,000 ML IV SCH
[2019-11-30 07:11] VITALS: TEMP 96.9
[2019-11-30] MEDS ORDERED: methylPREDNISolone ACETATE 40 MG/ML 1 ML VIAL ONE (07:36)
[2019-11-30] MEDS ORDERED: ROPIVACAINE 5MG/ML 20ML VIAL ONE (07:36)
[2019-11-30] MEDS ORDERED: fentaNYL (PF) 50 MCG/ML 2 ML AMP ONE (07:36)
[2019-11-30] MEDS ORDERED: MIDAZOLAM 2 MG/2 ML VIAL ONE (07:36)
[2019-11-30] MEDS ORDERED: IV FLUID CONTINUATION 1,000 ML IV ONE (08:15)
--- NOTE | 2019-11-30 08:15 | P.PCN ---
Date of Procedure: 11/30/19 Procedure(s) Performed: PREOPERATIVE DIAGNOSIS: Cervical Spondylosis with Facet Arthropathy.without myelopathy POSTOPERATIVE DIAGNOSIS: Cervical Spondylosis Facet Arthropathy. Without myelopathy PROCEDURES: Diagnostic bilateral C2 , C3, C4 medial branch blocks, with fluoroscopic guidance (fluoroscopy images available in radiology department ) ( to target the facet joint at bilateral C2-3 ,C3-4 ) ANESTHESIA: moderate sedation with Versed 2 mg , and fentanyl 100 micrograms EBL: Minimal PROCEDURE INDICATION: The patient with neck pain secondary to cervical arthropathy unresponsive to more conservative treatments. PROCEDURE DESCRIPTION / TECHNIQUE: The patient was seen and identified in the preoperative area. Risks, benefits, complications, and alternatives were discussed with the patient, the patient agreed to proceed with the procedure and signed the consent. IV was started. Vital signs remained stable throughout the procedure. Patient was taken to the OR and time out was completed. The patient was placed in the prone position on the procedure table. A pillow was placed under the patients chest to increase the cervical interlaminar space. The cervical area was prepped and draped in the usual sterile fashion. Critical pause was taken. Vital signs were closely monitored during the procedure. Conscious sedation was used during the procedure to decrease patients anxiety. Using cross-table lateral fluoroscopy, the centroid of the trapezoid of right C2 C3, C4 , was identified, marked, and localized with 1% lidocaine 1 ml at each level for skin and Sub Q infiltrations . Subsequently, a 22 G 4 spinal needle was advanced guided by fluoroscopy to the centroid of the trapezoid of Right C2 , C3, C4 [place] tip position was confirmed at the centroid of the trapezoids of Right C2 , C3 , C4 , with anteroposterior fluoroscopy. Subsequently, 1,5 ml of preservative-free Ropivacaine 0.5% mixed with Depo- Medrol 20 mg and half ml of the mixture was injected after negative aspiration for blood and CSF. [place] was then removed intact the same procedure was repeated at the left C2 ,C3 , C4 ,levels. COMPLICATIONS: No acute complications. COMMENTS: The plan was to do bilateral medial branch blocks C2, C3, C4, C5 , but I was not able to visualize the C5 vertebra secondary to body habitus, even though we tried to pull in the upper extremity, and we tried to change position, but the shadow of the shoulder. C5 vertebra, Lara I ended up doing only C2, C3, C4 medial branch block DISPOSITION / PLANS: The patient was placed in a supine position and transferred to the recovery area in a stable condition for observation and was discharged from the recovery room after meeting discharge criteria. Home discharge instructions given to the patient by the staff. The patient was reexamined prior to discharge. The patient will schedule a follow up in the clinic in 2-4 weeks.
[2019-11-30 08:58] VITALS: BP 121/76; PULSE 49; RESP 16
--- NOTE | 2019-11-30 09:21 | FL ---
EXAMINATION TYPE: FL guided pain mgmt statistic DATE OF EXAM: 11/30/2019 CLINICAL HISTORY: Neck pain. TECHNIQUE: Fluoroscopy. COMPARISON: None. FINDINGS: Fluoroscopic guidance was provided during pain relief procedure performed by Dr. Mcclelland . A total of 0.29 minute of fluoroscopic time was utilized during the procedure and 4 spot images ar e acquired. Images acquired shows needle localization at multiple levels in the cervical spine. IMPRESSION: As Above.
== END 2019-11-30 09:31 | disposition home or self-care (01) ==
LOC: ORPAIN 06:49
PROVIDERS: ATTEND Specialist
DX: M47.812 Spondylosis without myelopathy or radiculopathy, cervical region (principal); Z88.0 Allergy status to penicillin; Z88.6 Allergy status to analgesic agent; Z91.041 Radiographic dye allergy status; Z88.2 Allergy status to sulfonamides
CPT/HCPCS: 64490; 64491 ×2; J2250; J1030; J3010; J2795; 99152

== ENCOUNTER 2020-01-09 08:38 | Day surgery (SDC) | payer MEDICARE, OTHER ==
[2020-01-05 10:50] VITALS: BMI 34.7
[2020-01-09 09:12] VITALS: RESP 16; TEMP 97.1
[2020-01-09] MEDS ORDERED: LIDOCAINE 1% (10MG/ML) FOR IV START INTRADERMA ONE (09:14)
[2020-01-09] MEDS ORDERED: methylPREDNISolone ACETATE 40 MG/ML 1 ML VIAL ONE (09:33)
[2020-01-09] MEDS ORDERED: ROPIVACAINE 5MG/ML 20ML VIAL ONE (09:33)
[2020-01-09] MEDS ORDERED: NIACIN TR 250 MG CAPSULE.ER PO ONE (09:33)
[2020-01-09] MEDS ORDERED: CLIDINIUM-chlordiazePOXIDE (2.5-5 MG) CAP ONE (09:33)
--- NOTE | 2020-01-09 10:09 | P.PCN ---
Date of Procedure: 01/09/20 Procedure(s) Performed: PREOPERATIVE DIAGNOSIS: Cervical Spondylosis with Facet Arthropathy.without myelopathy POSTOPERATIVE DIAGNOSIS: Cervical Spondylosis Facet Arthropathy. Without myelopathy PROCEDURES: Diagnostic bilateral C2 , C3, C4 medial branch blocks, with fluoroscopic guidance (fluoroscopy images available in radiology department ) ( to target the facet joint at bilateral C2-3 ,C3-4 ) ANESTHESIA: moderate sedation with Versed 2 mg , and fentanyl 100 micrograms EBL: Minimal PROCEDURE INDICATION: The patient with neck pain secondary to cervical arthropathy unresponsive to more conservative treatments. PROCEDURE DESCRIPTION / TECHNIQUE: The patient was seen and identified in the preoperative area. Risks, benefits, complications, and alternatives were discussed with the patient, the patient agreed to proceed with the procedure and signed the consent. IV was started. Vital signs remained stable throughout the procedure. Patient was taken to the OR and time out was completed. The patient was placed in the prone position on the procedure table. A pillow was placed under the patients chest to increase the cervical interlaminar space. The cervical area was prepped and draped in the usual sterile fashion. Critical pause was taken. Vital signs were closely monitored during the procedure. Conscious sedation was used during the procedure to decrease patients anxiety. Using cross-table lateral fluoroscopy, the centroid of the trapezoid of right C2 C3, C4 , was identified, marked, and localized with 1% lidocaine 1 ml at each level for skin and Sub Q infiltrations . Subsequently, a 22 G 4 spinal needle was advanced guided by fluoroscopy to the centroid of the trapezoid of Right C2 , C3, C4 [place] tip position was confirmed at the centroid of the trapezoids of Right C2 , C3 , C4 , with anteroposterior fluoroscopy. Subsequently, 1,5 ml of preservative-free Ropivacaine 0.5% mixed with Depo- Medrol 20 mg and half ml of the mixture was injected after negative aspiration for blood and CSF. [place] was then removed intact the same procedure was repeated at the left C2 ,C3 , C4 ,levels. COMPLICATIONS: No acute complications. Patient will follow up in the pain clinic in a few weeks
[2020-01-09] MEDS ORDERED: IV FLUID CONTINUATION 500 ML IV ONE (10:14)
--- NOTE | 2020-01-09 10:36 | FL ---
EXAMINATION TYPE: FL guided pain mgmt statistic DATE OF EXAM: 01/09/2020 HISTORY: Fluoroscopy time 16 seconds of fluoroscopy provided. IMPRESSION: 1. Fluoroscopy time.
[2020-01-09 10:49] VITALS: BP 97/62; PULSE 51
== END 2020-01-09 10:57 | disposition home or self-care (01) ==
LOC: ORPAIN 08:38
PROVIDERS: ATTEND Specialist
DX: M47.812 Spondylosis without myelopathy or radiculopathy, cervical region (principal); Z88.6 Allergy status to analgesic agent; Z88.0 Allergy status to penicillin; Z88.2 Allergy status to sulfonamides
CPT/HCPCS: 64490; 64491; J1030; J2795; 99152; 99153

== ENCOUNTER → 2020-01-31 | Outpatient (CLI) | payer MEDICARE, OTHER ==
[2020-01-31 13:12] VITALS: BP 132/79; PULSE 60; RESP 20; TEMP 97.8
--- NOTE | 2020-01-31 13:36 | P.PN ---
Subjective Progress Note Date: 01/31/20 Starla presents follow-up after having cervical medial branch blocks bilaterally. She reports that helped the pain significantly. She reports that helped for some days time. The pain that she is having the head is still not back at this time. She is very happy with the outcomes and like to move forward with the radio frequency ablation in the near future. She reports she recently had hernia repair surgery in her abdomen is having difficulty laying on her stomach so she wants to hold off for a few weeks before that. Objective - Vital Signs Vital signs: Vital Signs Temp 97.8 F 01/31/20 13:04 Pulse 60 01/31/20 13:04 Resp 20 01/31/20 13:04 BP 132/79 01/31/20 13:04 Pulse Ox 100 01/31/20 13:04 - Exam PHYSICAL EXAM: Constitutional: Awake and alert no distress Cardiovascular exam: Regular rate, no lower extremity edema, palpable pulses bilaterally Respiratory exam: No audible wheezing, no accessory muscle usage Abdominal exam: Soft nontender Muscular skeletal exam: - Cervical spine: Minimally tender palpation. Range of motion is slightly limited. Facet loading is positive bilaterally Spurling is negative. Upper shoulder strength is normal. - Lumbar spine: Slight loss of lumbar lordosis with midline alignment. Strength nausea is normal. Neuro exam: Normal sensation bilateral upper and lower extremities. Deep tendon reflexes are 2+ bilaterally. Dang's is negative Psychiatric exam: Cooperative, good insight Assessment and Plan Assessment: Cervical spondylosis without myelopathy Plan: At This point we will will schedule her for a cervical radio frequency ablation of the C3 4 and C4 5 levels bilaterally. She should have sedation for this procedure. We'll schedule her out a few weeks until her hernia heels and the abdomen
== END | disposition home or self-care (01) ==
LOC: PNWHC3 13:00
PROVIDERS: ATTEND Hospitalist
DX: M47.812 Spondylosis without myelopathy or radiculopathy, cervical region (principal)
CPT/HCPCS: 99211

== ENCOUNTER → 2020-03-06 | Outpatient (CLI) | payer MEDICARE, OTHER ==
--- NOTE | 2020-03-06 12:38 | XR ---
EXAMINATION TYPE: XR wrist complete LT DATE OF EXAM: 03/06/2020 COMPARISON: NONE HISTORY: Pain TECHNIQUE: Four views submitted. FINDINGS: The osseous structures are intact. The joint spaces are preserved and there is no acute fracture or dislocation. IMPRESSION: 1. No definite acute fracture or dislocation if symptoms persist, follow-up study in 7 to 10 days wo uld be suggested
== END | disposition home or self-care (01) ==
LOC: RADXRMAIN 11:53
PROVIDERS: ATTEND Internal Medicine
DX: M25.532 Pain in left wrist (principal)
CPT/HCPCS: 36415; 85652

== ENCOUNTER 2020-03-15 06:52 | Day surgery (SDC) | payer MEDICARE, OTHER ==
[2020-03-15] MEDS ORDERED: LIDOCAINE 1% (10MG/ML) FOR IV START INTRADERMA ONE (08:02)
[2020-03-15 08:11] VITALS: TEMP 97.4
[2020-03-15] MEDS ORDERED: ONDANSETRON 4 MG/2 ML VIAL ONE (08:25)
[2020-03-15] MEDS ORDERED: ONDANSETRON 4 MG/2 ML VIAL IVP ONE (08:27)
[2020-03-15] MEDS ORDERED: ROPIVACAINE 5MG/ML 20ML VIAL ONE (08:31)
[2020-03-15] MEDS ORDERED: MIDAZOLAM 2 MG/2 ML VIAL ONE (08:31)
[2020-03-15] MEDS ORDERED: fentaNYL (PF) 50 MCG/ML 2 ML AMP ONE (08:31)
[2020-03-15] MEDS ORDERED: methylPREDNISolone ACETATE 40 MG/ML 1 ML VIAL ONE (08:31)
[2020-03-15] MEDS ORDERED: TRIAMCINOLONE ACETONIDE 40 MG/ML 1 ML VIAL ONE ×2 (08:31)
--- NOTE | 2020-03-15 09:16 | P.PCN ---
Date of Procedure: 03/15/20 Procedure(s) Performed: PREOPERATIVE DIAGNOSIS: Cervical spondylosis with Facet Arthropathy without myelopathy. POSTOPERATIVE DIAGNOSIS: Cervical spondylosis with Facet Arthropathy without myelopathy. PROCEDURES: Radiofrequency thermocoagulation Bilateral C2 , C3, C4, medial branch with Fluroscopy [place](fluoroscopy was available in etiology department ) (to denervate the facet joint at Bilateral C2-3 ,C3- 4 ) ANESTHESIA: Monitored anesthesia care provided by anesthesia department EBL: Minimal PROCEDURE INDICATION: The patient with neck pain secondary to cervical arthropathy who had more than 50% relief of her pain with previous diagnostic cervical medial branch block. PROCEDURE DESCRIPTION / TECHNIQUE: The patient was seen and identified in the preoperative area. Risks, benefits, complications, and alternatives were discussed with the patient, the patient agreed to proceed with the procedure and signed the consent. IV was started. Vital signs remained stable throughout the procedure. Patient was taken to the OR and time out was completed. The patient was placed in the prone position on the procedure table. A pillow was placed under the patients chest to increase the cervical interlaminar space. The cervical area was prepped and draped in the usual sterile fashion. Critical pause was taken. Vital signs were closely monitored during the procedure. Conscious sedation was used during the procedure to decrease patients anxiety. Using cross-table lateral fluoroscopy, the centroid of the trapezoid of Right C2 , C3, C4, were identified, marked, and localized with 1% lidocaine. Subsequently, a 20 -hc radiofrequency cannula with a 10-mm active tip was advanced guided by fluoroscopy to the centroid of the trapezoid of Right C2 ,C3, C4. Needle tip position was confirmed at the centroid of the trapezoids of Right C2 , C3, C4, with anteroposterior fluoroscopy. Each site then underwent sensory testing at 50 Hz and 0 to 1 volt and motor testing at 2 Hz and 0 to 3 volt with local stimulation, but no radicular symptoms down the arm. Thereafter each sites underwent radiofrequency thermocoagulation at 80 degrees celsius for 90 seconds after injecting 0.5 ml of PF Ropivacaine 0.5 %. After thermocoagulation, 1 ml of the block solution containing Depo-Medrol 20 mg and 5 mL of preservative-free normal saline was injected at the Right C2 ,C3, C4, levels after negative aspiration of CSF and blood and with no paresthesias. Cannulas were retracted while injecting lidocaine 1% until the needle is out. Then later on the exact same procedure was repeated to do the left side RFA medial branch at C2 ,C3 and C4 , then after that the Skin was cleansed and band ages were applied. COMPLICATIONS: No acute complications. DISPOSITION / PLANS: The patient was placed in a supine position and transferred to the recovery area in a stable condition for observation and was discharged from the recovery room after meeting discharge criteria. Home discharge instructions given to the patient by the staff. The patient was reexamined prior to discharge. The patient will schedule a follow up in the clinic in 2-4 weeks.
[2020-03-15] MEDS ORDERED: IV FLUID CONTINUATION 1,000 ML IV ONE (09:17)
[2020-03-15 09:38] VITALS: BP 114/71; PULSE 50; RESP 16
--- NOTE | 2020-03-15 10:57 | FL ---
Fluoroscopy HISTORY: Pain 16 seconds fluoroscopy time supplied to the referring clinician. 4 intraoperative C-arm images docum ent the procedure. See dictated report from anesthesia.
== END 2020-03-15 10:14 ==
LOC: ORPAIN 06:52
PROVIDERS: ATTEND Specialist
DX: M47.812 Spondylosis without myelopathy or radiculopathy, cervical region (principal); I10 Essential (primary) hypertension; J45.909 Unspecified asthma, uncomplicated; G35 Multiple sclerosis; K21.9 Gastro-esophageal reflux disease without esophagitis; G47.33 Obstructive sleep apnea (adult) (pediatric); Z88.0 Allergy status to penicillin; Z88.2 Allergy status to sulfonamides; Z88.6 Allergy status to analgesic agent; Z99.89 Dependence on other enabling machines and devices; Z79.899 Other long term (current) drug therapy; Z90.710 Acquired absence of both cervix and uterus
CPT/HCPCS: 64633; 64634; J2250; J1030; J2405; J3010; J2795

== ENCOUNTER → 2020-04-01 | Outpatient (CLI) | payer MEDICARE, OTHER ==
[2020-04-01 08:13] VITALS: BP 119/72; PULSE 56; RESP 18; TEMP 98.4
--- NOTE | 2020-04-01 08:58 | P.PN ---
Progress Note - Text Progress Note Date: 04/01/20 64-year-old female who presents for follow-up procedure status post bilateral cervical radio pharmacy ablation C2-C3, C3-C4. She had excellent relief from her occipital headaches, she's not experienced any since the procedure. However she does have some residual neuritis in the locations of needle placement. They're consistent with the distribution of the seat 3 and C4 dermatomes bilaterally but mostly on the right. Patient has a history of MS, she is a poor historian but does recall having some similar issues in the past. She does not endorse any weakness in her upper extremities or any new negative symptoms other than the neuritis. Overall, she is pleased with the fact that she is headache free. She denies any bowel or bladder incontinence or saddle anesthesia. She denies any falls or recent MS relapses. In addition to above, 13-point review of systems is also negative for chest pain, shortness of breath, changes in vision, changes in hearing, new onset weakness, abdominal pain, diarrhea, extreme fatigue, malaise, fever, skin changes, homicidal or suicidal ideation, or bowel or bladder incontinence. Vital Signs: Reviewed in EMR Constitutional: Awake and alert no distress Cardiovascular exam: Regular rate, no lower extremity edema, palpable pulses bilaterally Respiratory exam: No audible wheezing, no accessory muscle usage Abdominal exam: Soft nontender Muscular skeletal exam: - Cervical spine: Minimally tender palpation. Range of motion is slightly limited. Facet loading is negative, Spurling's is negative. Upper shoulder strength is normal. - Lumbar spine: Slight loss of lumbar lordosis with midline alignment. Strength nausea is normal. Neuro exam: Normal sensation bilateral upper and lower extremities. Deep tendon reflexes are 2+ bilaterally. Dang's is negative Psychiatric exam: Cooperative, good insight Plan: 1. Explanation: Opioid and psychological risk scores were reviewed. Diagnoses, prognoses, and multiple treatment options including but not limited to physical therapy, interventional therapies, adjuvant medical therapies, narcotic medication therapies, and surgery were discussed with the patient and all questions were answered to the patient's satisfaction. 2. Opioid agreement: No opiates prescribed 3. Counseling: The patient was counseled extensively on BMI and exercise. Specifically, the patient was instructed regarding the importance of smoking cessation, obesity, and exercise in the context of both chronic pain and overall health. 4. Procedures: None at the moment. Patient status post bilateral cervical rhizotomy C2-C3, C3-C4. 5. Consultations: None 6. Investigations: None 7. Medications: None 8. Disposition: Patient follow-up in 4 weeks to reevaluate her neuritis instructed her to contact the clinic if anything changes or if symptoms get worse or if any weakness is appreciated in her upper extremities or lower extremities.
== END | disposition home or self-care (01) ==
LOC: PNWHC3 07:55
PROVIDERS: ATTEND Anesthesiology
DX: Z48.811 Encounter for surgical aftercare following surgery on the nervous system (principal); M79.2 Neuralgia and neuritis, unspecified; Z98.890 Other specified postprocedural states
CPT/HCPCS: 99211

== ENCOUNTER → 2020-06-04 | Outpatient (CLI) | payer MEDICARE, OTHER ==
--- NOTE | 2020-06-04 12:09 | FL ---
EXAMINATION TYPE: FL barium swallow w video DATE OF EXAM: 06/04/2020 CLINICAL HISTORY: 64-year-old female G3 5, this are multiple sclerosis with food sticking in throat. Dysphagia. TECHNIQUE: Deglutition study is performed utilizing thin liquid barium, barium thick applesauce, and barium coated cracker. COMPARISON: None. Total fluoroscopy time: 1 minute 12 seconds. Total images: None. Real-time fluoroscopy was provided to speech pathology. FINDINGS: There is mild anterior endplate spondylosis noted. The oral and pharyngeal phases show satisfactory initiation and propagation with all modalities teste d. Normal mastication is seen with solid modalities tested. There is no evidence of penetration or aspiration with any modality tested. No significant pharyngeal residue was appreciated. IMPRESSION: Normal deglutition study. Please refer to speech therapist notes for further details if necessary.
== END | disposition home or self-care (01) ==
LOC: RADFLMAIN 10:44
PROVIDERS: ATTEND Psychiatry & Neurology Neurology
DX: G35 Multiple sclerosis (principal); R13.11 Dysphagia, oral phase
CPT/HCPCS: 74230

== ENCOUNTER → 2020-06-12 | Outpatient (CLI) | payer MEDICARE, OTHER ==
[2020-06-12 11:56] VITALS: BP 155/94; PULSE 61; RESP 16; TEMP 97.5
--- NOTE | 2020-06-12 12:01 | P.PAINPG ---
Subjective Progress Note Date: 06/12/20 64-year-old female who presents for follow-up. Recently had bilateral cervical radio frequency ablation C2-C3, C3-C4 on 03/2020. Her last visit she had noted excellent relief from these ablations [employer]'s parenting some neuritis worse on the right side. She has a history of MS and is a poor historian. We've asked her to follow-up on this visit to see how the neuritis was doing. Patient's overall history is quite confusing, now she mentions that the ablations did not help and that she is having more pain in her occipital region. She is wondering why the ablations were done in the head, I assured her that they were done in the neck and that we ablate nerves in the cervical spine and I can refer pain into the head and shoulders. I was unable to understand her she said she had no pain 1 minute however the next minute she said that she had 10 out of 10 pain in her occipital region. He describes the pain as shooting and stabbing electric- like. She says the pain is so bad she cannot comb her hair in that area. She does not endorse any weakness in her upper extremities or any new negative symptoms other than the neuritis. Overall, she is pleased with the fact that she is headache free. She denies any bowel or bladder incontinence or saddle anesthesia. She denies any falls or recent MS relapses. In addition to above, 13-point review of systems is also negative for chest pain, shortness of breath, changes in vision, changes in hearing, new onset weakness, abdominal pain, diarrhea, extreme fatigue, malaise, fever, skin changes, homicidal or suicidal ideation, or bowel or bladder incontinence. Vital Signs: Reviewed in EMR Constitutional: Awake and alert no distress Cardiovascular exam: Regular rate, no lower extremity edema, palpable pulses bilaterally Respiratory exam: No audible wheezing, no accessory muscle usage Abdominal exam: Soft nontender Muscular skeletal exam: - Cervical spine: Significant TTP over occipital region. Range of motion is slightly limited. Facet loading is negative, Spurling's is negative. Upper shoulder strength is normal. - Lumbar spine: Slight loss of lumbar lordosis with midline alignment. Strength nausea is normal. Neuro exam: Normal sensation bilateral upper and lower extremities. Deep tendon reflexes are 2+ bilaterally. Dang's is negative Psychiatric exam: Cooperative, good insight Plan: 1. Explanation: Opioid and psychological risk scores were reviewed. Diagnoses, prognoses, and multiple treatment options including but not limited to physical therapy, interventional therapies, adjuvant medical therapies, narcotic medication therapies, and surgery were discussed with the patient and all questions were answered to the patient's satisfaction. 2. Opioid agreement: No opiates prescribed 3. Counseling: none 4. Procedures: Patient was having episodic and electric pain in the occipital region, I did offer her a bilateral occipital nerve block. She said she would like to think about this before proceeding. 5. Consultations: None 6. Investigations: None 7. Medications: None 8. Disposition: As needed, still unclear if she had any benefit from the RFA as she seems to change her opinion and overall evaluation of the procedure several times throughout the visit. If she calls can schedule occipital nerve block PQRS Measure Charge Sheet PQRS Narrative: Smoking Status Never smoker Pain Intensity [Neck] 6 Scale Used Numeric (1 - 10) Hx Alcohol Use (MH) No Home Medications: Ambulatory Orders Albuterol Sulfate [Proair Hfa] 1 dose INHALATION BID PRN 11/14/14 Cholecalciferol [Vitamin D3] 1,000 unit PO DAILY 11/14/14 Cyanocobalamin [Vitamin B-12] 1,000 mg PO DAILY 11/14/14 Fluticasone Nasal [place] [Flonase Nasal [place]] 1 spr NASAL BID 11/14/14 Folic Acid 800 mcg PO DAILY 11/14/14 Glatiramer Acetate [Copaxone] 20 mg SQ HS 11/14/14 Loratadine [Claritin] 10 mg PO QAM 11/14/14 Topiramate 25 mg PO HS 11/14/14 Albuterol Nebulized [Ventolin Nebulized] 1 dose INHALATION BID PRN 02/18/16 Zafirlukast [Accolate] 20 mg PO BID 02/18/16 Ascorbic Acid [Vitamin C] 500 mg PO DAILY 10/17/19 Carboxymethylcellulose Sodium [Refresh Tears] 1 drop BOTH EYES DAILY 10/17/19 Ibgard 1 cap PO DAILY PRN 10/17/19 Magnesium 500 mg PO DAILY 10/17/19 Omeprazole [PriLOSEC] 40 mg PO QAM 10/17/19 Vitamin E 100 unit PO DAILY 10/17/19 DULoxetine HCL [Cymbalta] 60 mg PO QAM 11/29/19 Hydrochlorothiazide [hydroCHLOROthiazide] 12.5 mg PO QAM 11/29/19 Metoprolol Tartrate [Lopressor] 25 mg PO BID 11/29/19 Acetaminophen Tab [Tylenol] 325 - 650 mg PO Q6H PRN 03/14/20 Baclofen 10 mg PO AC-SUPPER 03/14/20 Fluticasone Propionate 110 Mcg [Flovent 110 Mcg Inhaler (Mhu)] 1 puff IN BID 03/14/20 Pravastatin Sodium [Pravachol] 20 mg PO HS 03/14/20 Trolamine Salicylate/Aloe Vera [Aspercreme 10% Cream] 1 applic TOPICAL DAILY PRN 03/14/20 amLODIPine [Norvasc] 2.5 mg PO HS 03/14/20 polyethylene glycoL 3350 [Miralax] 1 dose PO DAILY PRN 03/14/20 Controlled Substance Measures - Controlled Substance Measures Is patient prescribed a controlled substance at discharge?: No
== END ==
LOC: PNWHC3 11:34
PROVIDERS: ATTEND Anesthesiology
DX: M54.81 Occipital neuralgia (principal); Z79.899 Other long term (current) drug therapy
CPT/HCPCS: 99211

== ENCOUNTER 2021-01-10 11:07 | Emergency (ER) | payer MEDICARE, OTHER ==
[2021-01-10 15:00] LABS: ALT 17 U/L (4-34); AST 26 U/L (14-36); African American GFR (CKD) >90 (>60 ml/min/1.73 sqM); Albumin 4.1 g/dL (3.5-5.0); Alkaline Phosphatase 102 U/L (38-126); Anion Gap 7 mmol/L; Blood Urea Nitrogen 9 mg/dL (7-17); Calcium 9.3 mg/dL (8.4-10.2); Carbon Dioxide 25 mmol/L (22-30); Chloride 108 mmol/L (98-107); Glucose 87 mg/dL (74-99); Non-African American GFR(CKD) 82 (>60 ml/min/1.73 sqM); Sodium 140 mmol/L (137-145); Total Bilirubin 0.7 mg/dL (0.2-1.3); Total Protein 7.3 g/dL (6.3-8.2)
[2021-01-10 15:28] LABS: Basophils # (A) 0.1 k/uL (0-0.2); Basophils % (A) 1 %; Eosinophils # (A) 0.2 k/uL (0-0.7); Eosinophils % (A) 3 %; HCT 45.4 % (34.0-46.0); Lymphocytes # (A) 2.8 k/uL (1.0-4.8); Lymphocytes % (A) 40 %; MCH 30.6 pg (25.0-35.0); MCV 92.9 fL (80.0-100.0); Mean Platelet Volume 7.8; Monocytes # (A) 0.3 k/uL (0-1.0); Monocytes % (A) 4 %; Neutrophils # (A) 3.5 k/uL (1.3-7.7); Neutrophils % (A) 51 %; Platelet Count 203 k/uL (150-450); RBC 4.89 m/uL (3.80-5.40); RDW 13.5 % (11.5-15.5)
--- NOTE | 2021-01-10 15:36 | ED ---
Recheck HPI - General Chief Complaint: Recheck/Abnormal Lab/Rx Stated Complaint: wants BP check Time Seen by Provider: 01/10/21 14:00 Source: patient, RN notes reviewed, old records reviewed Mode of arrival: ambulatory Limitations: no limitations - History of Present Illness Initial Comments: Patient is a 65-year-old female presenting to the emergency department with concerns of elevated blood pressure over the past few weeks. She states she's been taking at home and it's been remaining in the 180s to 190s. She states she actually had a follow-up with her animal herder today. They took her blood pressure twice in the office and both times is completely normal, they told her just to continue monitoring, kept her medications the same. She is currently on metoprolol, hydrochlorothiazide, statin, among many other medications. Patient was not happy with this and came straight to the ER. She denies any chest pain or shortness of breath, she does have history of MS. She is complaining of some mild aches and pains over the past few weeks. She denies any fevers or chills, no abdominal pain, nausea or vomiting. She denies having a headache, no blurry vision. No falls or trauma. She has no further complaints. Vital signs upon arrival are completely normal. - Related Data Home Medications Medication Instructions Recorded Confirmed Albuterol Sulfate [Proair Hfa] 1 dose INHALATION BID PRN 11/14/14 08/26/20 Cholecalciferol [Vitamin D3] 1,000 unit PO DAILY 11/14/14 08/26/20 Cyanocobalamin [Vitamin B-12] 1,000 mg PO DAILY 11/14/14 08/26/20 Fluticasone Nasal [place] [Flonase 1 spr NASAL BID 11/14/14 08/26/20 Nasal [place]] Folic Acid 800 mcg PO DAILY 11/14/14 08/26/20 Glatiramer Acetate [Copaxone] 20 mg SQ HS 11/14/14 08/26/20 Loratadine [Claritin] 10 mg PO QAM 11/14/14 08/26/20 Topiramate 25 mg PO HS 11/14/14 08/26/20 Albuterol Nebulized [Ventolin 1 dose INHALATION BID PRN 02/18/16 08/26/20 Nebulized] Zafirlukast [Accolate] 20 mg PO BID 02/18/16 08/26/20 Ascorbic Acid [Vitamin C] 500 mg PO DAILY 10/17/19 08/26/20 Carboxymethylcellulose Sodium 1 drop BOTH EYES DAILY 10/17/19 08/26/20 [Refresh Tears] Ibgard 1 cap PO DAILY PRN 10/17/19 08/26/20 Magnesium 500 mg PO DAILY 10/17/19 08/26/20 Omeprazole [PriLOSEC] 40 mg PO QAM 10/17/19 08/26/20 Vitamin E 100 unit PO DAILY 10/17/19 08/26/20 DULoxetine HCL [Cymbalta] 60 mg PO QAM 11/29/19 08/26/20 Hydrochlorothiazide 12.5 mg PO QAM 11/29/19 08/26/20 [hydroCHLOROthiazide] Metoprolol Tartrate [Lopressor] 25 mg PO BID 11/29/19 08/26/20 Acetaminophen Tab [Tylenol] 325 - 650 mg PO Q6H PRN 03/14/20 08/26/20 Baclofen 10 mg PO AC-SUPPER 03/14/20 08/26/20 Fluticasone Propionate 110 Mcg 1 puff IN BID 03/14/20 08/26/20 [Flovent 110 Mcg Inhaler (Mhu)] Pravastatin Sodium [Pravachol] 20 mg PO HS 03/14/20 08/26/20 Trolamine Salicylate/Aloe Vera 1 applic TOPICAL DAILY PRN 03/14/20 08/26/20 [Aspercreme 10% Cream] amLODIPine [Norvasc] 2.5 mg PO HS 03/14/20 08/26/20 polyethylene glycoL 3350 [Miralax] 1 dose PO DAILY PRN 03/14/20 08/26/20 Allergies Allergy/AdvReac Type Severity Reaction Status Date / Time aspirin Allergy Anaphylaxis Verified 01/10/21 11:19 Penicillins Allergy Rash/Hives Verified 01/10/21 11:19 Sulfa (Sulfonamide Allergy Anaphylaxis Verified 01/10/21 11:19 Antibiotics) Review of Systems ROS Statement: Those systems with pertinent positive or pertinent negative responses have been documented in the HPI. ROS Other: All systems not noted in ROS Statement are negative. Past Medical History Past Medical History: Asthma, GERD/Reflux, Hypertension, Neurologic Disorder, Sleep Apnea/CPAP/BIPAP Additional Past Medical History / Comment(s): Multiple sclerosis (NO LOSS OF FUNCTION) VARICOSE VEINS. Intermittent tachycardia, migraine headaches. history of gonorrhea in the 1970s., History of Any Multi-Drug Resistant Organisms: None Reported Past Surgical History: Breast Surgery, Hysterectomy, Orthopedic Surgery Additional Past Surgical History / Comment(s): VEIN STRIPPING. Lumpectomy right breast Right shoulder surgery. Multiple colonoscopies, Laparoscopy in the , PAIN CLINIC PROCEDURE, BILAT CATARACTS REMOVED WITH LENS IMPLANTS, surgery to reapir hiatal hernia, Past Anesthesia/Blood Transfusion Reactions: Motion Sickness Past Psychological History: Depression Smoking Status: Never smoker Past Alcohol Use History: None Reported Past Drug Use History: None Reported - Past Family History Mother Family Medical History: Cancer Additional Family Medical History / Comment(s): breast cancer Sister(s) Family Medical History: Cancer Additional Family Medical History / Comment(s): . Brother(s) Family Medical History: Coronary Artery Disease (CAD), Renal Disease General Exam - General Exam Comments Initial Comments: GENERAL: Patient is well-developed and well-nourished. Patient is nontoxic and in no acute distress. HEAD: Atraumatic, normocephalic. EYES: Pupils equal round and reactive to light, extraocular movements intact, sclera anicteric, conjunctiva are normal. Eyelids were unremarkable. ENT: TMs normal, nares patent, oropharynx clear without exudates. Moist mucous membranes. NECK: Normal range of motion, supple without lymphadenopathy or JVD. LUNGS: Unlabored respirations. Breath sounds clear to auscultation bilaterally and equal. No wheezes rales or rhonchi. HEART: Regular rate and rhythm without murmurs, rubs or gallops. ABDOMEN: Soft, nontender, normoactive bowel sounds. No guarding, no rebound. No masses appreciated. MUSCULOSKELETAL: Normal extremities with adequate strength and normal range of motion, no pitting or edema. No clubbing or cyanosis. NEUROLOGICAL: Patient is alert and oriented x 3. Symmetrical smile. Normal speech, normal gait. PSYCH: Normal mood, normal affect. SKIN: Warm, Dry, normal turgor, no rashes or lesions noted. Limitations: no limitations Course Vital Signs 01/10/21 01/10/21 01/10/21 11:17 13:40 14:15 Temperature 98.4 F Pulse Rate 60 52 L 52 L Respiratory 20 18 20 Rate Blood Pressure 143/90 140/91 134/77 O2 Sat by Pulse 99 98 99 Oximetry 01/10/21 14:54 Temperature Pulse Rate 50 L Respiratory 18 Rate Blood Pressure 142/87 O2 Sat by Pulse 99 Oximetry Medical Decision Making - Medical Decision Making Patient is a 65-year-old female with multiple comorbidities, presenting for elevated blood pressure. She came from her animal herder's office, she had normal readings there, was upset that they did not do anything else to came to the ER. Her blood pressure here has been completely normal, ranging from the 120s to 130s. She is symptom free, her exam is unremarkable. I did agree to check basic labs for her and she was concerned with her potassium, her labs are unremarkable. I discussed these findings with the patient. Patient is stable for discharge. She can follow up with her primary care. Return parameters were discussed with her and she verbalized understanding. Case discussed with Dr. Arredondo. - Lab Data Result diagrams: 01/10/21 14:41 01/10/21 14:41 Lab Results 01/10/21 01/10/21 Range/Units 14:41 14:41 WBC 7.0 (3.8-10.6) k/uL RBC 4.89 (3.80-5.40) m/uL Hgb 15.0 (11.4-16.0) gm/dL Hct 45.4 (34.0-46.0) % MCV 92.9 (80.0-100.0) fL MCH 30.6 (25.0-35.0) pg MCHC 33.0 (31.0-37.0) g/dL RDW 13.5 (11.5-15.5) % Plt Count 203 (150-450) k/uL MPV 7.8 Neutrophils % 51 % Lymphocytes % 40 % Monocytes % 4 % Eosinophils % 3 % Basophils % 1 % Neutrophils # 3.5 (1.3-7.7) k/uL Lymphocytes # 2.8 (1.0-4.8) k/uL Monocytes # 0.3 (0-1.0) k/uL Eosinophils # 0.2 (0-0.7) k/uL Basophils # 0.1 (0-0.2) k/uL Sodium 140 (137-145) mmol/L Potassium 4.0 (3.5-5.1) mmol/L Chloride 108 H (98-107) mmol/L Carbon Dioxide 25 (22-30) mmol/L Anion Gap 7 mmol/L BUN 9 (7-17) mg/dL Creatinine 0.77 (0.52-1.04) mg/dL Est GFR (CKD-EPI)AfAm >90 (>60 ml/min/1.73 sqM) Est GFR (CKD-EPI)NonAf 82 (>60 ml/min/1.73 sqM) Glucose 87 (74-99) mg/dL Calcium 9.3 (8.4-10.2) mg/dL Total Bilirubin 0.7 (0.2-1.3) mg/dL AST 26 (14-36) U/L ALT 17 (4-34) U/L Alkaline Phosphatase 102 (38-126) U/L Total Protein 7.3 (6.3-8.2) g/dL Albumin 4.1 (3.5-5.0) g/dL Disposition Clinical Impression: Hypertension Disposition: HOME SELF-CARE Condition: Stable Instructions (If sedation given, give patient instructions): Hypertension (ED) Additional Instructions: Please return to the Emergency Department if symptoms worsen or any other concerns. Vital signs and lab work are completely normal today. Please follow-up with your primary care. Is patient prescribed a controlled substance at d/c from ED?: No Referrals: Piter Justice MD [Primary Care Provider] - 1-2 days Time of Disposition: 15:36
[2021-01-10 17:33] VITALS: BP 149/84; PULSE 51; RESP 20; TEMP 98.2
== END 2021-01-10 17:00 | disposition home or self-care (01) ==
LOC: EC 11:07
DX: I10 Essential (primary) hypertension (principal); J45.909 Unspecified asthma, uncomplicated; K21.9 Gastro-esophageal reflux disease without esophagitis; G35 Multiple sclerosis; F32.9 Major depressive disorder, single episode, unspecified; Z79.51 Long term (current) use of inhaled steroids; Z79.899 Other long term (current) drug therapy; Z88.0 Allergy status to penicillin; Z88.2 Allergy status to sulfonamides; Z80.3 Family history of malignant neoplasm of breast; Z82.49 Family history of ischemic heart disease and other diseases of the circulatory system
CPT/HCPCS: 36415; 80053; 85025; 99283

== ENCOUNTER → 2021-11-04 | Outpatient (CLI) | payer MEDICARE, OTHER ==
--- NOTE | 2021-11-04 12:12 | BD ---
EXAMINATION TYPE: Axial Bone Density DATE OF EXAM: 11/04/2021 COMPARISON: NONE CLINICAL HISTORY: 66 years year old Female. ICD-10 CODE: M89.9 BONE DISORDER Height: 5 fFT 5 1/2 IN Weight: FRAX RISK QUESTIONS: Alcohol (3 or more units per day): NO Family History (Parent hip fracture): YES Glucocorticoids (More than 3mos): NO (Ex: prednisone, prednisolone, methylprednisolone, dexamethasone, and hydrocortisone). History of Fracture in Adulthood: YES Secondary Osteoporosis: 1. Type 1 Diabetes: NO 2. Hyperthyroidism: NO 3. Menopause before 45:? 4. Malnutrition: NO 5. Chronic liver disease: NO Rheumatoid Arthritis: NO Current Tobacco Use: NO RISK FACTORS HISTORY OF: History of Wrist Fracture: RT When: OCTOBER 2021 Surgery to Spine/Hip(right/left)/Wrist (right/left): RT WRIST When: OCTOBER 2021 Family History of Osteoporosis: YES Active: YES Diet low in dairy products/other sources of calcium: NO Postmenopausal woman: YES Take estrogen and/or progesterone medications: NO Lost more than 2 inches in height since high school: NO Frequent falls: NO Poor Health: PT HAS MS Hyperparathyroidism: NO Adrenal Insufficiency: NO MEDICATIONS: Additional Medications: METOPROLOL, VALSARTAN, CYMBALTA, COPAXIN, TOPAMAX, ALBUTEROL, PREVACID, Additional History: EXAM MEASUREMENTS: Bone mineral densitometry was performed using the [employer] System. Bone mineral density as measured about the Lumbar spine is: ----- L1-L4(G/cm2): 1.083 T Score Values are as follows: ----- L1: -1.7 ----- L2: -1.0 ----- L3: -0.2 ----- L4: -0.5 ----- L1-L4: -0.8 BASELINE Bone mineral density about the R hip (g/cm2): 0.841 Bone mineral density about the L hip (g/cm2): 0.928 T Score values are as follows: -----R Neck: -1.4 -----L Neck: -0.8 -----R Total: -0.6 -----L Total: -0.1 BASELINE FRAX%s: The graph provided illustrates a 6.1 % chance for a major osteoporotic fx and a 0.6 % chance for the hips probability for fx in 10 years time. IMPRESSION: Osteopenia (T Score between -2.5 and -1). There is slightly increased risk of fracture and the patient may be considered for treatment. Re-Screen 2-5 years. NOTE: T-SCORE=SD OF THE YOUNG ADULT MEAN.
== END | disposition home or self-care (01) ==
LOC: RADBDWWP 10:10
PROVIDERS: ATTEND Internal Medicine
DX: M89.9 Disorder of bone, unspecified (principal)
CPT/HCPCS: 77080

== ENCOUNTER 2021-12-31 14:59 | Emergency (ER) | payer MEDICARE, OTHER ==
--- NOTE | 2021-12-31 16:28 | XR ---
EXAMINATION TYPE: XR chest 2V DATE OF EXAM: 12/31/2021 COMPARISON: 11/20/2019 INDICATION: Chest pain TECHNIQUE: Single frontal view of the chest is obtained. FINDINGS: The heart size is normal. The pulmonary vasculature is normal. The lungs are clear. IMPRESSION: 1. No acute pulmonary process.
--- NOTE | 2021-12-31 16:29 | XR ---
EXAMINATION TYPE: XR humerus RT DATE OF EXAM: 12/31/2021 COMPARISON: None HISTORY: Pain TECHNIQUE: 2 view right humerus FINDINGS: Degenerative spurring is present at the humeral head. No acute fractures are evident. Elbow joint space is visualized appears unremarkable. Soft tissues are unremarkable. IMPRESSION: 1. Degenerative changes at the glenohumeral junction. 2. No acute osseous abnormality radiographically apparent. Follow up exams can be performed 7-10 days from acute trauma for pain.
[2021-12-31 17:22] LABS: Basophils % (A) 0 %; Eosinophils % (A) 0 %; HCT 46.8 % (34.0-46.0); HGB 15.2 gm/dL (11.4-16.0); Lymphocytes # (A) 1.2 k/uL (1.0-4.8); Lymphocytes % (A) 10 %; MCH 30.1 pg (25.0-35.0); MCHC 32.4 g/dL (31.0-37.0); MCV 92.9 fL (80.0-100.0); Mean Platelet Volume 7.8; Monocytes # (A) 0.4 k/uL (0-1.0); Monocytes % (A) 3 %; Neutrophils # (A) 10.5 k/uL (1.3-7.7); Neutrophils % (A) 86 %; Platelet Count 214 k/uL (150-450); RBC 5.04 m/uL (3.80-5.40); RDW 12.6 % (11.5-15.5); WBC 12.2 k/uL (3.8-10.6)
[2021-12-31 17:25] LABS: INR 0.9 (<1.2); Partial Thromboplastin Time 24.6 sec (22.0-30.0)
[2021-12-31 17:30] LABS: ALT 15 U/L (4-34); AST 19 U/L (14-36); African American GFR (CKD) >90 (>60 ml/min/1.73 sqM); Albumin 4.7 g/dL (3.5-5.0); Alkaline Phosphatase 110 U/L (38-126); Blood Urea Nitrogen 15 mg/dL (7-17); Calcium 10.2 mg/dL (8.4-10.2); Chloride 106 mmol/L (98-107); Glucose 112 mg/dL (74-99); Magnesium 2.2 mg/dL (1.6-2.3); Non-African American GFR(CKD) 81 (>60 ml/min/1.73 sqM); Potassium 4.1 mmol/L (3.5-5.1); Sodium 140 mmol/L (137-145); Total Bilirubin 0.4 mg/dL (0.2-1.3); Total Protein 7.9 g/dL (6.3-8.2)
[2021-12-31 17:56] LABS: Anion Gap 16 mmol/L; Carbon Dioxide 18 mmol/L (22-30)
[2021-12-31] MEDS ORDERED: ONDANSETRON 4 MG/2 ML VIAL IVP STA (21:15)
[2021-12-31] MEDS ORDERED: KETOROLAC 15 MG/ML 1 ML VIAL IVP STA (21:16)
[2021-12-31] MEDS ORDERED: SODIUM CHLORIDE 0.9% 500 ML 500 ML IV ONE (21:16)
--- NOTE | 2021-12-31 21:59 | US ---
EXAMINATION TYPE: US venous doppler duplex UE RT DATE OF EXAM: 12/31/2021 COMPARISON: NONE CLINICAL HISTORY: eval for dvt. Right arm pain x 3 weeks SIDE PERFORMED: Right Right Arm: No evidence of DVT IMPRESSION: No sign of deep vein thrombosis in the right arm.
--- NOTE | 2021-12-31 22:16 | ED ---
General Adult HPI - General Chief complaint: Chest Pain Stated complaint: chest pain, shoulder pain Time Seen by Provider: 12/31/21 20:42 Source: patient, RN notes reviewed, old records reviewed Mode of arrival: ambulatory Limitations: no limitations - History of Present Illness Initial comments: Patient is a 66-year-old female with past medical history remarkable for asthma, hypertension, MS who presents emergency Department complaining of a 2 to three- day history of right arm pain with radiation towards right shoulder and somewhat into her right chest. A known palliative or provocative factors. Seems to be worse with certain positions as well as movement and pressure. Did recently fracture her right wrist and recently had it removed from the cast. Denies any arm swelling. Denies any history of blood clots. Is not on blood thinners. De nies any history of cardiac disease in herself. States the pain has been more or less constant and worse with some specific movements of the right shoulder. States the pain in her arm seems to be over the posterior aspect of the right humerus and the muscle which radiates then up towards her right shoulder. No sensory deficits. Reduced range of motion of the right wrist secondary to the recent injury. Denies any nausea, vomiting, abdominal pain. Denies any fevers, chills, cough. His no other acute complaints at this time. Presents for further evaluation. - Related Data Home Medications Medication Instructions Recorded Confirmed Albuterol Sulfate [Proair Hfa] 1 dose INHALATION BID PRN 11/14/14 08/26/20 Cholecalciferol [Vitamin D3] 1,000 unit PO DAILY 11/14/14 08/26/20 Cyanocobalamin [Vitamin B-12] 1,000 mg PO DAILY 11/14/14 08/26/20 Fluticasone Nasal [place] [Flonase 1 spr NASAL BID 11/14/14 08/26/20 Nasal [place]] Folic Acid 800 mcg PO DAILY 11/14/14 08/26/20 Glatiramer Acetate [Copaxone] 20 mg SQ HS 11/14/14 08/26/20 Loratadine [Claritin] 10 mg PO QAM 11/14/14 08/26/20 Topiramate 25 mg PO HS 11/14/14 08/26/20 Albuterol Nebulized [Ventolin 1 dose INHALATION BID PRN 02/18/16 08/26/20 Nebulized] Zafirlukast [Accolate] 20 mg PO BID 02/18/16 08/26/20 Ascorbic Acid [Vitamin C] 500 mg PO DAILY 10/17/19 08/26/20 Carboxymethylcellulose Sodium 1 drop BOTH EYES DAILY 10/17/19 08/26/20 [Refresh Tears] Ibgard 1 cap PO DAILY PRN 10/17/19 08/26/20 Magnesium 500 mg PO DAILY 10/17/19 08/26/20 Omeprazole [PriLOSEC] 40 mg PO QAM 10/17/19 08/26/20 Vitamin E (Dl,Tocopheryl Acet) 100 unit PO DAILY 10/17/19 08/26/20 [Vitamin E] DULoxetine HCL [Cymbalta] 60 mg PO QAM 11/29/19 08/26/20 Metoprolol Tartrate [Lopressor] 25 mg PO BID 11/29/19 08/26/20 hydroCHLOROthiazide 12.5 mg PO QAM 11/29/19 08/26/20 Acetaminophen Tab [Tylenol] 325 - 650 mg PO Q6H PRN 03/14/20 08/26/20 Baclofen 10 mg PO AC-SUPPER 03/14/20 08/26/20 Fluticasone Propionate 110 Mcg 1 puff IN BID 03/14/20 08/26/20 [Flovent 110 Mcg Inhaler] Pravastatin Sodium [Pravachol] 20 mg PO HS 03/14/20 08/26/20 Trolamine Salicylate/Aloe Vera 1 applic TOPICAL DAILY PRN 03/14/20 08/26/20 [Aspercreme 10% Cream] amLODIPine [Norvasc] 2.5 mg PO HS 03/14/20 08/26/20 polyethylene glycoL 3350 [Miralax] 1 dose PO DAILY PRN 03/14/20 08/26/20 Allergies Allergy/AdvReac Type Severity Reaction Status Date / Time aspirin Allergy Anaphylaxis Verified 12/31/21 15:05 Penicillins Allergy Rash/Hives Verified 12/31/21 15:05 Sulfa (Sulfonamide Allergy Anaphylaxis Verified 12/31/21 15:05 Antibiotics) Review of Systems ROS Statement: Those systems with pertinent positive or pertinent negative responses have been documented in the HPI. Review of Systems: CONST: Denies fever EYES: Denies blurry vision ENT: Denies nasal congestion C/V: Endorses right shoulder pain/chest pain. RESP: Denies shortness of breath GI: Denies abdominal pain : Denies dysuria SKIN: Denies rash. MSK: Endorses right arm pain NEURO: Denies headache ROS Other: All systems not noted in ROS Statement are negative. Past Medical History Past Medical History: Asthma, GERD/Reflux, Hypertension, Neurologic Disorder, Sleep Apnea/CPAP/BIPAP Additional Past Medical History / Comment(s): Multiple sclerosis (NO LOSS OF FUNCTION) VARICOSE VEINS. Intermittent tachycardia, migraine headaches. history of gonorrhea in the 1970s., History of Any Multi-Drug Resistant Organisms: None Reported Past Surgical History: Breast Surgery, Hysterectomy, Orthopedic Surgery Additional Past Surgical History / Comment(s): VEIN STRIPPING. Lumpectomy right breast Right shoulder surgery. Multiple colonoscopies, Laparoscopy in the , PAIN CLINIC PROCEDURE, BILAT CATARACTS REMOVED WITH LENS IMPLANTS, surgery to reapir hiatal hernia, Past Anesthesia/Blood Transfusion Reactions: Motion Sickness Past Psychological History: Depression Smoking Status: Never smoker Past Alcohol Use History: None Reported Past Drug Use History: None Reported - Past Family History Mother Family Medical History: Cancer Additional Family Medical History / Comment(s): breast cancer Sister(s) Family Medical History: Cancer Additional Family Medical History / Comment(s): . Brother(s) Family Medical History: Coronary Artery Disease (CAD), Renal Disease General Exam - General Exam Comments Initial Comments: General: Appears in no acute distress. HEAD: Normal with no signs of head trauma. EYES: PERRLA, EOMI, conjunctiva normal, no discharge. ENT: Hearing grossly intact, normal oropharynx. RESPIRATORY: Clear breath sounds bilaterally. No wheezes, rales, or rhonchi. C/V: Regular rate and rhythm. S1 and S2 auscultated, no edema, peripheral pulses 2+ and intact throughout ABD: Abd is soft, nontender, nondistended EXT: Normal range of motion, no obvious deformity. Tenderness to palpation over the right before meals joint and anterior aspect of the shoulder. Also tenderness to palpation in the right triceps muscle. No chest pain on palpation. No cervical spine pain. SKIN: No rashes or lesions observed on exposed skin. NEURO: Alert and oriented 4. Reduced range of motion of the right wrist secondary to the recent injury. Baseline for the patient. Neurovascular intact throughout. Limitations: no limitations Course Vital Signs 12/31/21 12/31/21 12/31/21 15:03 21:15 22:38 Temperature 98.5 F 97.9 F Pulse Rate 81 60 Respiratory 16 18 16 Rate Blood Pressure 146/91 153/102 148/88 O2 Sat by Pulse 99 100 Oximetry Medical Decision Making - Medical Decision Making Based on the patient's presentation and physical exam, I'm concerned for possible cardiopulmonary cause for her current symptoms. Workup was largely started in triage. EKG showed no signs of acute ischemia. Laboratory studies showed a mild leukocytosis of 12.2 which is likely reactive. Troponin is undetectable. I did discuss with her like to obtain additional imaging including a venous duplex of the right upper extremity as well as a screening d- dimer for atypical chest pain. She was in agreement this plan. We did discuss her initial imaging, chest x-ray and humerus x-ray showed no obvious injuries. There is some degenerative changes at the right glenohumeral junction. She specimen understanding. She'll be sent likely treatment. Vital signs are within normal limits. Venous duplex shows no signs of blood clot or DVT in the right upper extremity. Second troponin is undetectable. Greater than 3 hours after the initial.. D- dimer is within normal limits. I discussed results with the patient. I do believe it is safer to be discharged home at this time with follow up with her PCP. She appears to be having musculoskeletal pain. She does have analgesic medications at home. She was in agreement this plan. Heart score is low at 3. Strict return precautions were discussed. I instructed the patient to follow up with their PCP in the next 1-3 days. I explained that the patient should return to the emergency department if they experience any worsening symptoms. Strict return precautions were discussed with the patient. The patient expressed understanding of these instructions. I answered all questions that the patient had. The patient was discharged home in good condition with their prescriptions and follow up information. - Lab Data Result diagrams: 12/31/21 16:47 12/31/21 16:47 Lab Results 12/31/21 12/31/21 12/31/21 Range/Units 16:47 16:47 16:47 WBC 12.2 H (3.8-10.6) k/uL RBC 5.04 (3.80-5.40) m/uL Hgb 15.2 (11.4-16.0) gm/dL Hct 46.8 H (34.0-46.0) % MCV 92.9 (80.0-100.0) fL MCH 30.1 (25.0-35.0) pg MCHC 32.4 (31.0-37.0) g/dL RDW 12.6 (11.5-15.5) % Plt Count 214 (150-450) k/uL MPV 7.8 Neutrophils % 86 % Lymphocytes % 10 % Monocytes % 3 % Eosinophils % 0 % Basophils % 0 % Neutrophils # 10.5 H (1.3-7.7) k/uL Lymphocytes # 1.2 (1.0-4.8) k/uL Monocytes # 0.4 (0-1.0) k/uL Eosinophils # 0.0 (0-0.7) k/uL Basophils # 0.0 (0-0.2) k/uL PT 10.0 (9.0-12.0) sec INR 0.9 (<1.2) APTT 24.6 (22.0-30.0) sec D-Dimer (<0.60) mg/L FEU Sodium 140 (137-145) mmol/L Potassium 4.1 (3.5-5.1) mmol/L Chloride 106 (98-107) mmol/L Carbon Dioxide 18 L (22-30) mmol/L Anion Gap 16 mmol/L BUN 15 (7-17) mg/dL Creatinine 0.78 (0.52-1.04) mg/dL Est GFR (CKD-EPI)AfAm >90 (>60 ml/min/1.73 sqM) Est GFR (CKD-EPI)NonAf 81 (>60 ml/min/1.73 sqM) Glucose 112 H (74-99) mg/dL Calcium 10.2 (8.4-10.2) mg/dL Magnesium 2.2 (1.6-2.3) mg/dL Total Bilirubin 0.4 (0.2-1.3) mg/dL AST 19 (14-36) U/L ALT 15 (4-34) U/L Alkaline Phosphatase 110 (38-126) U/L Troponin I (0.000-0.034) ng/mL Total Protein 7.9 (6.3-8.2) g/dL Albumin 4.7 (3.5-5.0) g/dL 12/31/21 12/31/21 12/31/21 Range/Units 16:47 21:15 21:15 WBC (3.8-10.6) k/uL RBC (3.80-5.40) m/uL Hgb (11.4-16.0) gm/dL Hct (34.0-46.0) % MCV (80.0-100.0) fL MCH (25.0-35.0) pg MCHC (31.0-37.0) g/dL RDW (11.5-15.5) % Plt Count (150-450) k/uL MPV Neutrophils % % Lymphocytes % % Monocytes % % Eosinophils % % Basophils % % Neutrophils # (1.3-7.7) k/uL Lymphocytes # (1.0-4.8) k/uL Monocytes # (0-1.0) k/uL Eosinophils # (0-0.7) k/uL Basophils # (0-0.2) k/uL PT (9.0-12.0) sec INR (<1.2) APTT (22.0-30.0) sec D-Dimer 0.25 (<0.60) mg/L FEU Sodium (137-145) mmol/L Potassium (3.5-5.1) mmol/L Chloride (98-107) mmol/L Carbon Dioxide (22-30) mmol/L Anion Gap mmol/L BUN (7-17) mg/dL Creatinine (0.52-1.04) mg/dL Est GFR (CKD-EPI)AfAm (>60 ml/min/1.73 sqM) Est GFR (CKD-EPI)NonAf (>60 ml/min/1.73 sqM) Glucose (74-99) mg/dL Calcium (8.4-10.2) mg/dL Magnesium (1.6-2.3) mg/dL Total Bilirubin (0.2-1.3) mg/dL AST (14-36) U/L ALT (4-34) U/L Alkaline Phosphatase (38-126) U/L Troponin I <0.012 <0.012 (0.000-0.034) ng/mL Total Protein (6.3-8.2) g/dL Albumin (3.5-5.0) g/dL - EKG Data -: EKG Interpreted by Me EKG Comments: 12-lead Electrocardiogram Interpretation Note EKG was reviewed and interpreted by myself. 12-lead ECG performed at 1508 is interpreted by me as revealing normal sinus rhythm at a rate of 66 beats per minute. Left axis deviation. IL interval is 158 ms, QRS duration is 99 ms, QTc is 402 ms.. There were no ST or T wave abnormalities to suggest myocardial ischemia or injury. R wave progression across the precordium was satisfactory. By my interpretation this EKG is non-diagnostic for acute ischemia. Disposition Clinical Impression: Right arm pain, Atypical chest pain Disposition: HOME SELF-CARE Condition: Good Instructions (If sedation given, give patient instructions): Chest Pain (ED), Arm Pain (ED) Is patient prescribed a controlled substance at d/c from ED?: No Referrals: Daniel Garcia MD [Primary Care Provider] - 1-2 days Time of Disposition: 22:00
[2021-12-31 22:39] VITALS: BP 148/88; PULSE 60; RESP 16; TEMP 97.9
== END 2021-12-31 22:43 | disposition home or self-care (01) ==
LOC: EC 14:59
DX: R07.89 Other chest pain (principal); M79.601 Pain in right arm; D72.829 Elevated white blood cell count, unspecified; J45.909 Unspecified asthma, uncomplicated; I10 Essential (primary) hypertension; K21.9 Gastro-esophageal reflux disease without esophagitis; Z79.51 Long term (current) use of inhaled steroids; Z88.0 Allergy status to penicillin; Z88.6 Allergy status to analgesic agent; Z88.2 Allergy status to sulfonamides; Z99.89 Dependence on other enabling machines and devices
CPT/HCPCS: 99285; 36415; 93005; 85379; 80053; 83735; 84484; 85025; 85610; 85730; 73060; 71046; 93971; 96374; 96375; J2405; J1885

== ENCOUNTER → 2022-04-02 | Outpatient (CLI) | payer MEDICARE, OTHER ==
--- NOTE | 2022-04-02 16:05 | US ---
EXAMINATION TYPE: US carotid duplex BILAT DATE OF EXAM: 04/02/2022 COMPARISON: NONE CLINICAL HISTORY: R93.89. Patient states her BP has been slightly elevated. TECHNIQUE: Carotid duplex ultrasound examination. Indirect Doppler criteria was utilized. FINDINGS: EXAM MEASUREMENTS: RIGHT: Peak Systolic Velocity (PSV) cm/sec ----- Right CCA: 71.2 ----- Right ICA: 84.2 ----- Right ECA: 60.9 ICA/CCA ratio: 1.2 RIGHT: End Diastole cm/sec ----- Right CCA: 28.4 ----- Right ICA: 35.8 ----- Right ECA: 7.5 LEFT: Peak Systolic Velocity (PSV) cm/sec ----- Left CCA: 75.7 ----- Left ICA: 96.3 ----- Left ECA: 49.5 ICA/CCA ratio: 1.3 LEFT: End Diastole cm/sec ----- Left CCA: 30.7 ----- Left ICA: 44.6 ----- Left ECA: 11.8 VERTEBRALS (direction of flow): Right Vertebral: Antegrade Left Vertebral: Antegrade Rhythm: Normal PLANT CHANGER NOTES: No elevated velocities or significant stenosis. No wall thickening. No plaque vis ualized. Intimal thickening is present. Small amount of plaque is present. No significant flow-limiting stenos is is evident. IMPRESSION: Intimal thickening and mild plaquing without significant flow-limiting stenosis bilateral carotid bif urcations Criteria for Assigning % of Stenosis / Diameter reduction (Estimation based on the indirect measurements of the internal carotid artery velocities (ICA PSV). 1. Normal (no stenosis)=ICA PSV < 125 cm/s: ratio < 2.0: ICA EDV<40 cm/s. 2. Less than 50% stenosis=ICA PSV < 125 cm/s: ratio < 2.0: ICA EDV<40 cm/s. 3. 50 to 69% stenosis=ICA PSV of 125 to 230 cm/s: ration 2.0 ? 4.0: ICA EDV 40-100 cm/s. 4. Greater than 70% stenosis to near occlusion= ICA PSV > 230 cm/s: ratio > 4.0: ICA EDV > 100 cm/s. 5. Near occlusion= ICA PSV velocities may be low or undetectable: variable ratio and ICA EDV. 6. Total occlusion=unable to detect flow.
== END | disposition home or self-care (01) ==
LOC: RADUSWWP 14:38
PROVIDERS: ATTEND Family Medicine
DX: I65.23 Occlusion and stenosis of bilateral carotid arteries (principal); R93.89 Abnormal findings on diagnostic imaging of other specified body structures
CPT/HCPCS: 93880

== ENCOUNTER → 2022-09-22 | Outpatient (CLI) | payer MEDICARE, OTHER ==
--- NOTE | 2022-09-22 20:03 | US ---
EXAMINATION TYPE: US pelvis complete transvag DATE OF EXAM: 09/22/2022 COMPARISON: NONE CLINICAL INDICATION: Female, 66 years old with history of R10.2 PELVIC PAIN; pain uterus remove 2000 not sure about ovaries. TECHNIQUE: Transvaginal (TV) and Transabdominal (TA) . EXAM MEASUREMENTS: Uterus: Surgically absent Endometrial Stripe: Surgically absent Right Ovary: Not visualized Left Ovary: Not visualized 1. Uterus: Surgically absent 2. Endometrium: Surgically absent 3. Right Ovary: Not visualized due to bowel gas or surgically absent. 4. Left Ovary: Not visualized due to bowel gas or surgically absent. 5. Bilateral Adnexa: wnl 6. Posterior cul-de-sac: wnl IMPRESSION: Status post hysterectomy. Unable to visualize either ovary. Unsure if these are also surgically absen t or obscured by bowel gas. No pelvic free fluid.
== END | disposition home or self-care (01) ==
LOC: RADUSWWP 13:46
PROVIDERS: ATTEND Family Medicine
DX: R10.2 Pelvic and perineal pain (principal); Z90.710 Acquired absence of both cervix and uterus
CPT/HCPCS: 76830; 76856

== ENCOUNTER → 2022-12-03 | Outpatient (CLI) | payer MEDICARE, OTHER ==
[2022-12-03 16:23] LABS: ALT 14 U/L (8-44); AST 18 U/L (13-35); Albumin 4.4 d/dL (3.8-4.9); Albumin/Globulin Ratio 1.47 Ratio (1.60-3.17); Alkaline Phosphatase 98 U/L (41-126); Blood Urea Nitrogen 14.5 mg/dL (9.0-27.0); Calcium 9.4 mg/dL (8.7-10.3); Carbon Dioxide 26.2 mmol/L (21.6-31.8); Chloride 103 mmol/L (96-109); Chol/HDL Ratio 5.46 Ratio; Glucose 98 mg/dL (70-110); LDL Cholesterol,Calculated 186.1 mg/dL (0.0-131.0); Potassium 3.8 mmol/L (3.5-5.5); Sodium 140 mmol/L (135-145); Total Bilirubin 0.4 mg/dL (0.3-1.2); Total Protein 7.4 d/dL (6.2-8.2)
== END | disposition home or self-care (01) ==
LOC: LABWHC1 10:55
PROVIDERS: ATTEND Internal Medicine Interventional Cardiology
DX: E78.2 Mixed hyperlipidemia (principal)
CPT/HCPCS: 36415; 80053; 80061

== ENCOUNTER 2022-12-20 20:06 | Outpatient (CLI) | payer MEDICARE, OTHER | END 2022-12-21 06:00 | disposition home or self-care (01) | LOC: 3 N SLEEP 20:06 | PROVIDERS: ATTEND Internal Medicine | DX: G47.33 Obstructive sleep apnea (adult) (pediatric) (principal); Z88.0 Allergy status to penicillin; Z88.2 Allergy status to sulfonamides; Z88.6 Allergy status to analgesic agent | CPT/HCPCS: 95810 ==

== ENCOUNTER → 2023-09-13 | Outpatient (CLI) | payer MEDICARE, OTHER ==
--- NOTE | 2023-09-13 17:35 | US ---
EXAMINATION TYPE: US venous doppler duplex LE RT DATE OF EXAM: 09/13/2023 5:00 PM COMPARISON: US 2012 CLINICAL INDICATION: Female, 67 years old with history of RLE; M79.604 PAIN IN RIGHT LEG; No hx of DV T. Patient does not take blood thinners. Pain. SIDE PERFORMED: Right TECHNIQUE: The lower extremity deep venous system is examined utilizing real time linear array sonog camila with graded compression, doppler sonography and color-flow sonography. VESSELS IMAGED: Common Femoral Vein Deep Femoral Vein Greater Saphenous Vein * Femoral Vein Popliteal Vein Small Saphenous Vein * Proximal Calf Veins (* superficial vessels) The deep venous system of the right lower extremity from the common femoral vein to the proximal calf veins is patent and compressible with augmentable flow with normal waveforms. IMPRESSION: No evidence of right lower extremity DVT from the common femoral vein to the proximal calf veins
== END | disposition home or self-care (01) ==
LOC: RADUSWWP 16:34
PROVIDERS: ATTEND Family Medicine
DX: M79.604 Pain in right leg (principal); M25.561 Pain in right knee

== ENCOUNTER → 2023-10-22 | Outpatient (CLI) | payer MEDICARE, OTHER ==
--- NOTE | 2023-10-22 16:06 | XR ---
EXAMINATION TYPE: XR Hip Limited RT, XR femur RT DATE OF EXAM: 10/22/2023 3:16 PM CLINICAL INDICATION:Female, 68 years old with history of M25.551 PAIN IN RIGHT HIP; PHH COMPARISON: None. TECHNIQUE: XR Hip Limited RT, XR femur RT; hip was examined in the frontal and lateral projections Fr ontal and lateral views of the femur. FINDINGS: No evidence for acute process, joint dislocation or significant soft tissue swelling. Osteo phyte formation of the superior acetabulum of the hip. There is mild joint space narrowing. Degenerat ion changes of the knee with osteophyte patient and tibial plateau and patella and in femur. There is mild trace present. IMPRESSION: 1. No evidence for acute process. 2. Mild right hip and mild right knee osteoarthrosis.
== END | disposition home or self-care (01) ==
LOC: RADXRMAIN 14:35
PROVIDERS: ATTEND Psychiatry & Neurology Neurology
DX: M17.11 Unilateral primary osteoarthritis, right knee (principal); M16.11 Unilateral primary osteoarthritis, right hip
CPT/HCPCS: 73501

== ENCOUNTER 2024-06-23 11:31 | Day surgery (SDC) | payer MEDICARE ==
[~2024-06-23 11:31] MED LIST changes: -LACTATED RINGERS 1,000 ML IV SCH; +LIDOCAINE 1% (10MG/ML) FOR IV START INTRADERMA PRN
[2024-06-23 12:05] VITALS: RESP 16; TEMP 97.1
[2024-06-23] MEDS: LACTATED RINGERS 1,000 ML IV SCH (12:10)
[2024-06-23] MEDS: IV FLUID CONTINUATION 1,000 ML IV ONE (12:10)
[2024-06-23] MEDS ORDERED: PROPOFOL 10 MG/ML 20 ML VIAL IV ONE (12:59)
[2024-06-23] MEDS ORDERED: LIDOCAINE 1% INJ 10MG/ML (20 ML MDV) ONE (12:59)
--- NOTE | 2024-06-23 13:08 | P.PCN ---
Date of Procedure: 06/23/24 Procedure(s) Performed: BRIEF HISTORY: Patient is a 68-year-old, pleasant, [place] female scheduled for an upper endoscopy as a part of evaluation of GERD and intermittent dysphagia to solids for the last few months duration. She has longstanding history of GERD and is status post Niesen fundoplication many years ago. PROCEDURE PERFORMED: Esophagogastroduodenoscopy with biopsy. PREOPERATIVE DIAGNOSIS: GERD/intermittent dysphagia to solid. IV sedation per anesthesia. PROCEDURE: After informed consent was obtained, the patient was brought into the endoscopy unit. IV sedation was administered by Anesthesia under continuous monitoring. Initially the Olympus GIF-140 video endoscope was inserted into the mouth. Esophagus intubated without any difficulty. It was gradually advanced into the stomach and duodenum and carefully examined. The bulb and the second part of the duodenum appeared normal. The scope at this time was withdrawn to the stomach, adequately insufflated with air, and upon careful examination, mucosa of the antrum, body, had patchy areas of erythema consistent with g astritis and biopsies were done from this area. Mucosa of the cardia and the fundus appeared normal. The scope was then withdrawn into the esophagus. Small sliding-type hiatal hernia noted. The GE junction was located at 39 cm from the incisors. The esophagus appeared normal. There were no erosions or ulcerations seen. No evidence of esophageal stricture. Biopsies were done from the distal esophagus and the patient tolerated the procedure well. IMPRESSION: 1. Mild antral gastritis. 2. Small hiatal hernia but no evidence of esophagitis or esophageal stricture. RECOMMENDATIONS: The findings of this examination were discussed with the patient as well as her family. She was advised to follow-up with the biopsy results. Continue with current medications and follow antireflux measures..
[2024-06-23 13:31] VITALS: BP 127/91; PULSE 68
== END 2024-06-23 14:00 | disposition home or self-care (01) ==
LOC: ORWHC2ENDO 11:31
PROVIDERS: ATTEND Internal Medicine Gastroenterology
DX: K29.50 Unspecified chronic gastritis without bleeding (principal); K21.9 Gastro-esophageal reflux disease without esophagitis; K44.9 Diaphragmatic hernia without obstruction or gangrene; I10 Essential (primary) hypertension; J45.909 Unspecified asthma, uncomplicated; F32.A Depression, unspecified; G47.33 Obstructive sleep apnea (adult) (pediatric); G35 Multiple sclerosis; Z88.0 Allergy status to penicillin; Z99.89 Dependence on other enabling machines and devices; Z88.2 Allergy status to sulfonamides; Z88.6 Allergy status to analgesic agent; Z79.02 Long term (current) use of antithrombotics/antiplatelets; Z79.899 Other long term (current) drug therapy
CPT/HCPCS: 43239; J2003; J2704; 88305

== ENCOUNTER 2024-09-05 20:23 | Outpatient (CLI) | payer MEDICARE, OTHER ==
--- NOTE | 2024-09-11 20:48 | P.PCN ---
Date of Procedure: 09/05/24 Operative Findings: Polysomnography report History This is a 68-year-old female patient who has been diagnosed having obstructive sleep apnea back in 2012. At that time, the patient's disease was mild with an AHI of 6.5. The repeat study was done on 12/20/2022 and the patient was found to have no significant sleep breathing disorder and the AHI was at 2.6. The patient was treated with a CPAP pressure of 10 cm of water and this made the patient much more comfortable and she tolerated the treatment over the years. She is currently using an AirFit F20 fullface mask. No significant weight gain over the past 10 years. The patient stated that she is in need for treatment with CPAP therapy as the patient has seen significant clinical improvement while being on therapy. She has chronic fatigue and sleepiness and I was not absolutely certain whether this was related to obstructive sleep apnea. She has no sleep insufficiency and she is spending approximately 12 hours in bed. She has poor sleep hygiene measures in general. She also has multiple sclerosis, hypertension, hyperlipidemia and depression. Based on that, a full polysomnography was ordered to reevaluate her condition and assess her ongoing need for CPAP therapy. Physical findings The weight is 197 pounds with a body mass index of 31.8 Technical description The patient was studied using a standard complex polysomnography protocol that included recording of the Lead II EKG, Central, occipital and frontal EEG, right and left outer canthus EOG, submental EMG, right and left anterior tibialis EMG, respiratory airflow by thermocouple and or pressure/flow transducer, respiratory efforts by abdominal and thoracic PVDF belts, oxygen saturation by cable oximetry. Position by observation synchronized the PSG. Equipment used: [employer]. Sleep architecture The total recording duration was 413 minutes. The total sleep time was 370.5 minutes. The overall sleep efficiency was 89.7%. The latency to sleep onset was 18 minutes and the latency to REM sleep was 108.5 minutes. The wake after sleep onset time was 20.5 minutes. The sleep architecture was characterized by 10.5% stage I, 65.9% stage II, 0% stage III and a total of 23.6% REM sleep. The total arousal index was 5.8. Respiratory analysis The sleep study showed a total of 16 obstructive events of which 1 was obstructive apnea, 0 was mixed apnea and 15 for obstructive hypopneas. The resulting AHI was 2.3. Noted respiratory events were essentially in the form of obstructive hypopneas and they were predominantly occurring during REM sleep. There was no significant nocturnal oxygen desaturation. The baseline oxygen saturation was 97% while awake. Lowest oxygen saturation was 88% and the patient spent the majority of the sleep study had a pulse ox of 89% and above. Periodic limb movement summary The patient had no periodic limb movement activity Sleep continuity summary The patient had a total of 36 arousals with an index of 5.8. The respiratory arousal index was 1.0. Cardiac summary Average heart rate was 58 with a minimum heart rate of 54 and a maximum heart rate of 63 Assessment No evidence of any significant sleep breathing disorder and the AHI was 2.8. The patient also had no nocturnal oxygen desaturation. Normal sleep architecture Normal sleep efficiency No periodic limb movement activity No central apneas Multiple sclerosis Depression Migraine Hyperlipidemia Allergic rhinitis Plan Will discuss with the patient. Symptoms are likely related to comorbidities and there is no evidence of any underlying sleep disorder at this point.
== END 2024-09-06 06:15 | disposition home or self-care (01) ==
LOC: 3 N SLEEP 20:23
PROVIDERS: ATTEND Internal Medicine Critical Care Medicine
DX: G47.33 Obstructive sleep apnea (adult) (pediatric) (principal); G35 Multiple sclerosis; F32.A Depression, unspecified; G43.909 Migraine, unspecified, not intractable, without status migrainosus; E78.5 Hyperlipidemia, unspecified; J30.9 Allergic rhinitis, unspecified; Z88.0 Allergy status to penicillin; Z88.2 Allergy status to sulfonamides; Z88.6 Allergy status to analgesic agent
CPT/HCPCS: 95810